=== PATIENT | female | born 1945 | race Caucasian/White ===

== ENCOUNTER 2016-10-18 13:54 | Emergency (ER) | payer MEDICARE, OTHER ==
[~2016-10-18] VITALS: Ht 167.6 cm; Wt 101.5 kg
[~2016-10-18 13:54] MED LIST: ASPI-535 PO; CIPR500T4 PO; CLOT30CR24 TOP; D-ME118S6 PO; IBUP-1542 PO; LEVO88TA42 PO; LOSA1TAB19 PO; METF-480 PO; NAPR-260 PO; OMEP20CA16 PO; OSLT75C PO; PRAV20TA63 PO; RTPRO NEB
[2016-10-18 14:00] VITALS: Ht 167.6 cm; Wt 101.5 kg
[2016-10-18] MEDS ORDERED: ASPIRIN 81 MG TAB PO STA (15:47)
[2016-10-18] MEDS ORDERED: NITROGLYCERIN 2% 1 GM OINT PKT TD STA (15:47)
[2016-10-18] MEDS ORDERED: NITROGLYCERIN (SL) 0.4 MG TAB SL PRN (16:00)
--- NOTE | 2016-10-18 16:28 | RADRPT ---
PROCEDURE: XR Chest 1 View. CLINICAL INDICATION: Chest pain TECHNIQUE: AP view of the chest was obtained. COMPARISON: April 24, 2015 FINDINGS: The cardiomediastinal silhouette is within normal limits. Elevated right hemidiaphragm is identified . Atelectasis is noted at the left lung base. No consolidations are identified. No pneumothorax is seen. Osseous structures are intact. IMPRESSION: Elevated right hemidiaphragm. Atelectasis at the left lung base. RPTAT: AA .Brayden Luevano MD, Date Time Electronically viewed and signed by .Brayden Luevano MD, on 10/18/2016 16:27 .P/
[2016-10-18 16:41] LABS: BASOPHILS % 0.4 % (0.0-2.0); EOSINOPHILS # 0.2 10^3/ul (0.0-0.5); EOSINOPHILS % 2.7 % (0.0-7.0); HEMATOCRIT 38.2 % (37.0-47.0); HEMOGLOBIN 12.4 g/dl (12.0-16.0); LYMPHOCYTES # 2.7 10^3/ul (0.8-2.9); LYMPHOCYTES % 30.5 % (15.0-51.0); MEAN CORPUSCULAR HEMOGLOBIN 28.5 pg (29.0-33.0); MEAN CORPUSCULAR HGB CONC 32.5 g/dl (32.0-37.0); MEAN CORPUSCULAR VOLUME 87.8 fl (82.0-101.0); MEAN PLATELET VOLUME 9.4 fl (7.4-10.4); MONOCYTE # 0.7 10^3/ul (0.3-0.9); MONOCYTES % 8.2 % (0.0-11.0); PLATELET COUNT 347 10^3/UL (140-415); RED BLOOD COUNT 4.35 10^6/ul (4.20-5.40); RED CELL DISTRIBUTION WIDTH 13.4 % (11.5-14.5); WHITE BLOOD COUNT 8.9 10^3/ul (4.8-10.8)
[2016-10-18] MEDS ORDERED: LOSA1TAB20 PO (16:45)
[2016-10-18] MEDS ORDERED: METF500T4 PO (16:46)
[2016-10-18] MEDS ORDERED: FOLI-49 PO (16:46)
[2016-10-18] MEDS ORDERED: CHOL500010 PO (16:47)
[2016-10-18 16:50] LABS: ANION GAP 15 (8-16); BLOOD UREA NITROGEN 25 mg/dl (7-20); CALCIUM 9.8 mg/dl (8.4-10.2); CARBON DIOXIDE 29 mmol/L (21-31); CHLORIDE 102 mmol/L (97-110); CREATININE 0.62 mg/dl (0.44-1.00); GLUCOSE 131 mg/dl (70-220); POTASSIUM 4.5 mmol/L (3.5-5.1); SODIUM 141 mmol/L (135-144)
[2016-10-18] MEDS ORDERED: MAGN27TA2 PO (16:50)
[2016-10-18] MEDS ORDERED: CYAN100 PO (16:51)
[2016-10-18] MEDS ORDERED: FISH1CAP PO (17:00)
[2016-10-18 17:11] LABS: TROPONIN-I < 0.012 ng/ml (0.00-0.12)
[2016-10-18 18:00] VITALS: TEMP 99.2
[2016-10-18] MEDS ORDERED: PANT40TA3 PO (18:21)
--- NOTE | 2016-10-18 18:22 | ERD ---
ER Documentation Chief Complaint Date/Time DATE: 10/18/16 TIME: 18:22 Chief Complaint Complains of chest pain and SOB x2 days HPI Patient is a 71-year-old female with coronary artery disease, hypertension, and diabetes who presents with chest pain shortness of breath. She said the chest pain started years ago but over the past 3 weeks it has been worse. She saw Dr. Kamara yesterday and had an EKG done and he was not sure what the etiology of her chest pain was but did not think that it was cardiac. She is also having upper abdominal pain and thought that maybe it was related to her abdominal pain. Upon review of old medical records this is the patient's third visit to the ER since 2014. Her primary doctor is Dr. Duarnt and her medical dosimetrist Dr. Kamara. ROS All systems reviewed and are negative except as per history of present illness. Medications Home Meds Active Scripts Pantoprazole* (Protonix*) 40 Mg Tablet., 40 MG PO DAILY, #20 TAB Prov:LOBO SILVA MD 10/18/16 Reported Medications Fish Oil/Dha/Epa (FISH OIL 1,200 MG FISH OIL) 1 Each Capsule, 1 EACH PO BID, CAP 10/18/16 Cyanocobalamin* (Vitamin B12*) Unknown Strength Tab, 1 TAB PO DAILY, TAB 10/18/16 Magnesium Amino Acid Chelate (Magnesium) Unknown Strength Tablet, 25 MG PO DAILY , TAB 10/18/16 Cholecalciferol (Vitamin D3) 5,000 Unit Tablet, 5000 UNIT PO DAILY, TAB 10/18/16 Folic Acid* (Folic Acid*) 1 Mg Tablet, 1 MG PO DAILY, TAB 10/18/16 Metformin Hcl* (Metformin Hcl*) 500 Mg Tablet, 500 MG PO WITH BREAKFAST, #30 TAB 10/18/16 Losartan-Hydrochlorothiazide (Losartan-HCTZ) 100-25 Mg Tab, 1 TAB PO DAILY, TAB 10/18/16 Levothyroxine Sodium* (Levoxyl*) 88 Mcg Tablet, 88 MCG PO DAILY, TAB 04/04/14 Aspirin Ec (Aspir 81) 81 Mg Tablet., 81 MG PO DAILY, TAB 04/04/14 Discontinued Reported Medications Pravastatin Sodium* (Pravastatin Sodium*) 20 Mg Tablet, 20 MG PO HS, TAB 04/04/14 Losartan-Hydrochlorothiazide (Losartan-HCTZ) 50-12.5 Mg Tab, 1 TAB PO DAILY, TAB 04/04/14 Metformin* (Glucophage*) 850 Mg Tablet, 850 MG PO DAILY, TAB 04/04/14 Omeprazole* (Omeprazole*) 20 Mg Capsule.dr, 20 MG PO DAILY, CAP 04/04/14 Discontinued Scripts Naproxen* (Naprosyn*) 500 Mg Tablet, 500 MG PO BID Y for PAIN AND/OR INFLAMMATION, #30 TAB Prov:KATELYN FOOTE PA-C 12/02/15 Ibuprofen* (Motrin*) 600 Mg Tab, 600 MG PO Q6H Y for PAIN AND OR ELEVATED TEMP, #20 TAB Prov:REYNA CORDOVA MD 04/24/15 Oseltamivir Phosphate* (Tamiflu*) 75 Mg Capsule, 75 MG PO BID for 5 Days, CAP Prov:REYNA CORDOVA MD 04/24/15 Ciprofloxacin Hcl* (Ciprofloxacin Hcl*) 500 Mg Tablet, 500 MG PO BID for 7 Days , TAB Prov:REYNA CORDOVA MD 04/24/15 Albuterol Sulfate* (Proventil* Neb) 0.083% Neb, 2.5 MG NEB Q4 Y for SHORTNESS OF BREATH, #30 EA Prov:REYNA CORDOVA MD 04/24/15 Dextromethorphan Hb-Promethazine Hcl (Promethazine DM Syrup) 180 Ml Syrup, 10 ML PO Q6 Y for COUGH, #120 ML Prov:REYNA CORDOVA MD 04/24/15 Clotrimazole* (Clotrimazole* AF) 1% - 30 Gm Cream.gm., 1 APPLIC TOP BID for 7 Days, TUB Prov:CHORENÉE 09/02/14 Allergies Allergies: Coded Allergies: hydrocodone (Verified Allergy, Mild, UPSET STOMACH , VOMITING, 10/18/16) PMhx/Soc History of Surgery: Yes (HIP RIGHT, RIGHT THUMP, TOES, NOSE, ) Anesthesia Reaction: No Hx Neurological Disorder: No Hx Respiratory Disorders: No 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 THYROID ) Hx Alcohol Use: No Hx Substance Use: No Hx Tobacco Use: No Smoking Status: Never smoker FmHx Family History: No coronary disease Physical Exam Vitals Vital Signs Date Time Temp Pulse Resp B/P Pulse Ox O2 Delivery O2 Flow Rate FiO2 10/18/16 18:00 99.2 80 20 165/76 94 10/18/16 14:00 99.2 91 20 171/77 94 Physical Exam Const: No acute distress Head: Atraumatic Eyes: Normal Conjunctiva ENT: Normal External Ears, Nose and Mouth. Neck: Full range of motion..~ No meningismus. Resp: Clear to auscultation bilaterally Cardio: Regular rate and rhythm, no murmurs Abd: Soft,Midepigastric tenderness to palpation without rebound or guarding Skin: No petechiae or rashes Back: No midline or flank tenderness Ext: No cyanosis, or edema Neur: Awake and alert Psych: Normal Mood and Affect Result Diagram: 10/18/16 1605 10/18/16 1605 Results 24 hrs Laboratory Tests Test 10/18/16 16:05 White Blood Count 8.910^3/ul Red Blood Count 4.3510^6/ul Hemoglobin 12.4g/dl Hematocrit 38.2% Mean Corpuscular Volume 87.8fl Mean Corpuscular Hemoglobin 28.5pg Mean Corpuscular Hemoglobin Concent 32.5g/dl Red Cell Distribution Width 13.4% Platelet Count 04187^3/UL Mean Platelet Volume 9.4fl Neutrophils % 58.0% Lymphocytes % 30.5% Monocytes % 8.2% Eosinophils % 2.7% Basophils % 0.4% Nucleated Red Blood Cells % 0.0/100WBC Neutrophils # (Manual) 5.210^3/ul Lymphocytes # 2.710^3/ul Monocytes # 0.710^3/ul Eosinophils # 0.210^3/ul Basophils # 0.010^3/ul Nucleated Red Blood Cells # 0.010^3/ul Sodium Level 141mmol/L Potassium Level 4.5mmol/L Chloride Level 102mmol/L Carbon Dioxide Level 29mmol/L Anion Gap 15 Blood Urea Nitrogen 25mg/dl Creatinine 0.62mg/dl Glucose Level 131mg/dl Calcium Level 9.8mg/dl Troponin I < 0.012ng/ml Current Medications Medications (Trade) Dose Ordered Sig/Emily Route PRN Reason Start Time Stop Time Status Last Admin Dose Admin Aspirin (Aspirin) 162 mg ONCE STAT PO 10/18/16 15:47 10/18/16 15:48 DC 10/18/16 16:21 Nitroglycerin (Nitroglycerin 2% Oint) 1 inch ONCE STAT TD 10/18/16 15:47 10/18/16 15:48 DC 10/18/16 16:15 Nitroglycerin (Nitroglycerin (Sl Tab) 0.4 Mg) 1 tab Q5M UP TO 3 DOSES PRN SL CHEST PAIN 10/18/16 16:00 10/18/16 16:15 Procedures/MDM EKG read by me: Rate/Rhythm: Regular rate and rhythm at a rate of 90 Intervals: Normal Impression: No evidence of ischemia or arrhythmia Chest x-ray shows no obvious pneumonia or pneumothorax per radiology. Patient is a 71-year-old female with diabetes, hypertension, and coronary disease presents with chest pain shortness of breath. Her initial EKG shows no signs of ischemia and initial troponin is negative. However given her age and comorbidities I did want to admit her to the hospital. However she is refusing at this time. I did again offer and recommend admission and she is refusing. She is going to leave AGAINST MEDICAL ADVICE. She can follow-up with Dr. Gonzalez as soon as possible for evaluation. I told her that she could return for any worsening symptoms. She was given aspirin nitroglycerin here for possible acute coronary syndrome. At this point I doubt pneumonia, pneumothorax, pulmonary embolism, or aortic dissection. Departure Diagnosis: Primary Impression: Chest pain Chest pain type: unspecified Qualified Code: R07.9 - Chest pain, unspecified type Condition: Fair Patient Instructions: Chest Pain, Uncertain Cause Referrals: VIKKI DURANT MD (PCP) Additional Instructions: Call your primary care doctor TOMORROW for an appointment during the next 1-2 days.See the doctor sooner or return here if your condition worsens before your appointment time. LOBO SILVA MD Oct 18, 2016 18:22
[2016-10-18 19:05] VITALS: BP 140/79; PULSE 86; RESP 18
== END 2016-10-18 19:05 | disposition left against medical advice (07) ==
LOC: E/R 13:54
DX: R07.9 Chest pain, unspecified (principal); I10 Essential (primary) hypertension; E11.9 Type 2 diabetes mellitus without complications; I25.10 Atherosclerotic heart disease of native coronary artery without angina pectoris; Z79.82 Long term (current) use of aspirin; Z79.84 Long term (current) use of oral hypoglycemic drugs
CPT/HCPCS: 36415; 71010; 80048; 84484; 85025; 93005

== ENCOUNTER 2016-12-05 09:38 | Day surgery (SDC) | payer MEDICARE, OTHER ==
[~2016-12-05] VITALS: Ht 154.9 cm; Wt 102.4 kg
[~2016-12-05 09:38] MED LIST changes: +CHOL500010 PO; -CIPR500T4 PO; -CLOT30CR24 TOP; +CYAN100 PO; -D-ME118S6 PO; +FISH1CAP PO; +FOLI-49 PO; -IBUP-1542 PO; -LOSA1TAB19 PO; +LOSA1TAB20 PO; +MAGN27TA2 PO; -METF-480 PO; +METF500T4 PO; -NAPR-260 PO; -OMEP20CA16 PO; -OSLT75C PO; +PANT40TA3 PO; -PRAV20TA63 PO; -RTPRO NEB
[2016-12-05 11:11] VITALS: Ht 154.9 cm; Wt 102.4 kg
[2016-12-05 11:40] VITALS: BP 167/72; PULSE 69; RESP 18
[2016-12-05] MEDS ORDERED: hydrALAzine 20 MG INJ ONE (11:50)
[2016-12-05] MEDS ORDERED: PROPOFOL 40 ML ONE (11:50)
--- NOTE | 2016-12-05 12:12 | OPPN ---
Date/Time of Note Date/Time of Note DATE: 12/05/16 TIME: 12:11 Operative Report Preoperative Diagnosis Change in bowel habit Postoperative Diagnosis Poor prep Small sigmoid colon polyp was removed Internal hemorrhoids Operation/Procedure Performed Colonoscopy and biopsy Surgeon see signature line construction project assistant None Anesthesia: MAC Estimated blood loss: none Transfusion Required none Specimen Sigmoid polyp Grafts/Implants none Complications none TAD DAVIS MD Dec 05, 2016 12:12
--- NOTE | 2016-12-05 12:12 | OPPN ---
Date/Time of Note Date/Time of Note DATE: 12/05/16 TIME: 12:11 Operative Report Preoperative Diagnosis Change in bowel habit Postoperative Diagnosis Poor prep Small sigmoid colon polyp was removed Internal hemorrhoids Operation/Procedure Performed Colonoscopy and biopsy Surgeon see signature line assistant program manager None Anesthesia: MAC Estimated blood loss: none Transfusion Required none Specimen Sigmoid polyp Grafts/Implants none Complications none TAD DAVIS MD Dec 05, 2016 12:12
--- NOTE | 2016-12-05 12:12 | OPPN ---
Date/Time of Note Date/Time of Note DATE: 12/05/16 TIME: 12:11 Operative Report Preoperative Diagnosis Change in bowel habit Postoperative Diagnosis Poor prep Small sigmoid colon polyp was removed Internal hemorrhoids Operation/Procedure Performed Colonoscopy and biopsy Surgeon see signature line operator/assistant foreman None Anesthesia: MAC Estimated blood loss: none Transfusion Required none Specimen Sigmoid polyp Grafts/Implants none Complications none TAD DAVIS MD Dec 05, 2016 12:12
--- NOTE | 2016-12-05 12:28 | GILP ---
DATE OF PROCEDURE: 12/05/2016 NAME OF PROCEDURES: Colonoscopy and biopsy. SURGEON: Amna Chou MD PREOPERATIVE DIAGNOSES: 1. Change in the bowel habit. 2. Lower abdominal pain. POSTOPERATIVE DIAGNOSES 1. Colonoscopy all the way to the cecum. 2. Poor prep making the exam somewhat suboptimal. 3. Small sigmoid colon polyp was removed using the biopsy forceps. 4. Internal hemorrhoids. INDICATION FOR THE PROCEDURE: Ms. Ashley Quach is a 71-year-old female patient who noticed a ch willy in the bowel habit with lower abdominal pain. The patient had a previous colonoscopy and it wa s suboptimal because of poor preparation. Patient was scheduled for colonoscopy for further evaluat ion. The procedure and possible complications are well explained to the patient. The patient understood and consented to the procedure. DESCRIPTION OF PROCEDURE: Under the influence of anesthesia, the colonoscope was carefully introduc ed in the rectum and under direct vision, it was advanced all the way to the cecum. FINDINGS: The patient had poor prep making the exam somewhat suboptimal. She had a small sigmoid c olon polyp and it was removed using biopsy forceps. She had internal hemorrhoids. She tolerated the procedure very well and there was no complication from the procedure. At the end of the procedures, she was awake with stable vital signs and she was discharged home to the care of her family. IMPRESSION: Please see postoperative diagnosis. PLAN 1. High fiber diet. 2. Because of the patient's age, patient may not need another screening colonoscopy. Dictated By: AMNA WEI/KARYNA Conf#: [id number] DID#: [id number]
[2016-12-05 12:40] VITALS: BP 133/63; RESP 20
[2016-12-05] MEDS ORDERED: PROPOFOL 20 ML ONE ×2 (12:55)
--- NOTE | 2016-12-06 16:54 | RADRPT ---
Vent Rate: 69 bpm RR Interval: 0 msec SC Interval: 176 msec QRS Duration: 102 msec QT Interval: 444 msec QTC Interval: 475 msec P-R-T [place]: 38 - -17 - 18 degrees Normal sinus rhythm Minimal voltage criteria for LVH, may be normal variant Borderline ECG Electronically Signed By: Avinash Moreno [id number]
--- NOTE | 2016-12-06 16:54 | RADRPT ---
Vent Rate: 69 bpm RR Interval: 0 msec [place] Interval: 176 msec QRS Duration: 102 msec QT Interval: 444 msec QTC Interval: 475 msec P-R-T [place]: 38 - -17 - 18 degrees Normal sinus rhythm Minimal voltage criteria for LVH, may be normal variant Borderline ECG Electronically Signed By: Avinash Moreno [id number]
--- NOTE | 2016-12-06 16:54 | RADRPT ---
Vent Rate: 69 bpm RR Interval: 0 msec MS Interval: 176 msec QRS Duration: 102 msec QT Interval: 444 msec QTC Interval: 475 msec P-R-T [place]: 38 - -17 - 18 degrees Normal sinus rhythm Minimal voltage criteria for LVH, may be normal variant Borderline ECG Electronically Signed By: Avinash Moreno [id number]
== END 2016-12-05 15:36 | disposition home or self-care (01) ==
LOC: GIL 09:38
PROVIDERS: ATTEND Internal Medicine Gastroenterology
DX: K63.5 Polyp of colon (principal); K64.8 Other hemorrhoids; I25.10 Atherosclerotic heart disease of native coronary artery without angina pectoris; E78.5 Hyperlipidemia, unspecified; E11.9 Type 2 diabetes mellitus without complications; E03.9 Hypothyroidism, unspecified; K21.9 Gastro-esophageal reflux disease without esophagitis; I11.0 Hypertensive heart disease with heart failure; I50.9 Heart failure, unspecified
CPT/HCPCS: 45380; 82962; 88305; 93005; J0360

== ENCOUNTER 2017-01-01 10:18 | Emergency (ER) | payer MEDICARE, OTHER ==
[~2017-01-01] VITALS: Ht 154.9 cm; Wt 101.4 kg
[2017-01-01 10:21] VITALS: Ht 154.9 cm; Wt 101.4 kg
[2017-01-01 13:02] LABS: BASOPHILS % 0.3 % (0.0-2.0); EOSINOPHILS # 0.1 10^3/ul (0.0-0.5); EOSINOPHILS % 1.3 % (0.0-7.0); HEMATOCRIT 38.6 % (37.0-47.0); HEMOGLOBIN 12.5 g/dl (12.0-16.0); LYMPHOCYTES # 2.3 10^3/ul (0.8-2.9); MEAN CORPUSCULAR HEMOGLOBIN 28.7 pg (29.0-33.0); MEAN CORPUSCULAR HGB CONC 32.4 g/dl (32.0-37.0); MEAN CORPUSCULAR VOLUME 88.5 fl (82.0-101.0); MEAN PLATELET VOLUME 9.2 fl (7.4-10.4); MONOCYTE # 0.7 10^3/ul (0.3-0.9); MONOCYTES % 7.9 % (0.0-11.0); NEUTROPHIL # 6.1 10^3/ul (1.6-7.5); NEUTROPHILS % 65.3 % (39.0-77.0); PLATELET COUNT 332 10^3/UL (140-415); RED BLOOD COUNT 4.36 10^6/ul (4.20-5.40); RED CELL DISTRIBUTION WIDTH 13.2 % (11.5-14.5); WHITE BLOOD COUNT 9.3 10^3/ul (4.8-10.8)
[2017-01-01 13:03] LABS: ADD UMIC YES; UR ASCORBIC ACID NEGATIVE (NEGATIVE); UR BACTERIA FEW /HPF (NONE SEEN); UR BILIRUBIN (Dip) NEGATIVE (NEGATIVE); UR BLOOD (Dip) NEGATIVE (NEGATIVE); UR CLARITY CLEAR (CLEAR); UR COLOR STRAW (YELLOW); UR GLUCOSE (Dip) NEGATIVE (NEGATIVE); UR KETONES (Dip) NEGATIVE (NEGATIVE); UR LEUKOCYTE ESTERASE (Dip) TRACE Leu/ul (NEGATIVE); UR NITRITE (Dip) NEGATIVE (NEGATIVE); UR RBC 1 /HPF (0-5); UR SPECIFIC GRAVITY (Dip) 1.006 (1.003-1.030); UR SQUAMOUS EPITHELIAL CELL FEW /HPF (FEW); UR TOTAL PROTEIN (Dip) NEGATIVE (NEGATIVE); UR UROBILINOGEN (Dip) NEGATIVE (NEGATIVE)
[2017-01-01 13:19] LABS: ALBUMIN 4.1 g/dl (3.3-4.9); ALBUMIN/GLOBULIN RATIO 0.95; BILIRUBIN,INDIRECT 0.2 mg/dl (0-1.1); BILIRUBIN,TOTAL 0.2 mg/dl (0.2-1.3); CREATININE 0.65 mg/dl (0.44-1.00); POTASSIUM 4.5 mmol/L (3.5-5.1); TOTAL PROTEIN 8.4 g/dl (6.1-8.1)
--- NOTE | 2017-01-01 13:54 | RADRPT ---
PROCEDURE: XR Chest. CLINICAL INDICATION: chest pain, cough TECHNIQUE: Single frontal view of the chest was obtained COMPARISON: 04/24/15 FINDINGS: The heart and mediastinum are within normal limits. The lungs are clear. There is no pleural effusion or pneumothorax. RPTAT: AA IMPRESSION: No acute disease. .Macario Walker MD, MD Date Time Electronically viewed and signed by .Macario Walker MD, MD on 01/01/2017 13:54 .S/
[2017-01-01] MEDS ORDERED: BENZ100C70 PO (14:27)
[2017-01-01] MEDS ORDERED: FLUT16SP17 NASAL (14:27)
[2017-01-01] MEDS ORDERED: ACET500C5 PO (14:27)
--- NOTE | 2017-01-01 14:34 | EN ---
Date/Time of Note Date/Time of Note DATE: 01/01/17 TIME: 14:34 ER Progress Note I have seen and evaluated this patient and agree with the plan of care for discharge at this time. Discharge instructions given to the patient to return instructions also given to the patient verbalizes understanding. SHERIDAN BERKOWITZ DO Jan 01, 2017 14:34
--- NOTE | 2017-01-01 16:34 | ERD ---
ER Documentation Chief Complaint Chief Complaint SORE THROAT, HERNIA PAIN, SINUS CONGESTION, COUGH AND CONGESTION HPI 71-year-old female, history of diabetes, hypertension, obesity, with umbilical hernia presents with sore throat, congestion for the past 3 days, and abdominal pain. She describes a dry cough, with clear rhinorrhea and trip to the back of her throat. She also comes in with diffuse abdominal pain, and is in the mid abdomen radiates to her back. This pain in the abdomen has been ongoing for 2 weeks, and without fevers or chills, vomiting, diarrhea. ROS All systems reviewed and are negative except as per history of present illness. Medications Home Meds Active Scripts Acetaminophen* (Tylophen*) 500 Mg Capsule, 1 CAP PO Q6H Y for PAIN AND OR ELEVATED TEMP, #20 CAP Prov:JUDI SPENCER PA-C 01/01/17 Fluticasone Propionate* (Fluticasone Propionate* Nasal) 50 Mcg/[place] - 16 Gm [place].susp, 1 SPRAY NASAL BID, #1 BOTTLE TO EACH NOSTRIL Prov:JUDI SPENCER PA-C 01/01/17 Benzonatate* (Tessalon Per[place]*) 100 Mg Capsule, 100 MG PO Q8H Y for COUGH, #30 CAP Prov:JUDI SPENCER PA-C 01/01/17 Pantoprazole* (Protonix*) 40 Mg Tablet.dr, 40 MG PO DAILY, #20 TAB Prov:LOBO SILVA MD 10/18/16 Reported Medications Fish Oil/Dha/Epa (FISH OIL 1,200 MG FISH OIL) 1 Each Capsule, 1 EACH PO BID, CAP 10/18/16 Cyanocobalamin* (Vitamin B12*) Unknown Strength Tab, 1 TAB PO DAILY, TAB 10/18/16 Magnesium Amino Acid Chelate (Magnesium) Unknown Strength Tablet, 25 MG PO DAILY , TAB 10/18/16 Cholecalciferol (Vitamin D3) 5,000 Unit Tablet, 5000 UNIT PO DAILY, TAB 10/18/16 Folic Acid* (Folic Acid*) 1 Mg Tablet, 1 MG PO DAILY, TAB 10/18/16 Metformin Hcl* (Metformin Hcl*) 500 Mg Tablet, 500 MG PO WITH BREAKFAST, #30 TAB 10/18/16 Losartan-Hydrochlorothiazide (Losartan-HCTZ) 100-25 Mg Tab, 1 TAB PO DAILY, TAB 10/18/16 Levothyroxine Sodium* (Levoxyl*) 88 Mcg Tablet, 88 MCG PO DAILY, TAB 04/04/14 Aspirin Ec (Aspir 81) 81 Mg Tablet.dr, 81 MG PO DAILY, TAB 04/04/14 Allergies Allergies: Coded Allergies: hydrocodone (Verified Allergy, Mild, UPSET STOMACH , VOMITING, 10/18/16) PMhx/Soc History of Surgery: Yes (RIGHT HIP REPLACEMENT, NOSE, RIGHT THUMB BONE SPUR, BILATERAL FOOT BONE SPU) Anesthesia Reaction: No Hx Neurological Disorder: No Hx Respiratory Disorders: Yes (SLEEP APNEA ON CPAP AT NIGHT) Hx Cardiac Disorders: Yes (POOR BLOOD FLOW, VENOUS REFLUX IN LEGS) Hx Psychiatric Problems: Yes (DEPRESSION, ANXIETY) Hx Miscellaneous Medical Probl: Yes (HYPERLIPIDEMIA) Hx Alcohol Use: No (OCCASIONAL) Hx Substance Use: No Hx Tobacco Use: No Smoking Status: Never smoker Physical Exam Vitals Vital Signs Date Time Temp Pulse Resp B/P Pulse Ox O2 Delivery O2 Flow Rate FiO2 01/01/17 10:21 98.6 90 18 150/72 97 Physical Exam General: Well-developed, well-nourished. The patient appears in no acute distress. HEENT: Head is normocephalic, atraumatic. No scleral icterus. Pupils are equal , round, and reactive. Oral mucous membranes are moist. No pharyngeal erythema. Neck: Supple. Nontender.Supple. Nontender.Clear to auscultation. Normal air movement. Lungs: Clear to auscultation. Normal air movement. Heart: Regular rate and rhythm. S1 and S2 are normal. No murmurs, gallops, or rubs. Abdomen: Large pannus, soft, there is mid abdominal tenderness, there is no rebound pain, umbilical hernia is able to be reduced.. Bowel sounds are normoactive. Extremities: No clubbing or cyanosis. Normal pulses. Moving extremities x 4. No weakness. Neurologic: Alert and oriented 3. No focal deficits. Skin: Normal turgor. No rash or lesions. Result Diagram: 01/01/17 1254 01/01/17 1254 Results 24 hrs Laboratory Tests Test 01/01/17 12:54 White Blood Count 9.310^3/ul Red Blood Count 4.3610^6/ul Hemoglobin 12.5g/dl Hematocrit 38.6% Mean Corpuscular Volume 88.5fl Mean Corpuscular Hemoglobin 28.7pg Mean Corpuscular Hemoglobin Concent 32.4g/dl Red Cell Distribution Width 13.2% Platelet Count 81668^3/UL Mean Platelet Volume 9.2fl Neutrophils % 65.3% Lymphocytes % 25.0% Monocytes % 7.9% Eosinophils % 1.3% Basophils % 0.3% Nucleated Red Blood Cells % 0.0/100WBC Neutrophils # 6.110^3/ul Lymphocytes # 2.310^3/ul Monocytes # 0.710^3/ul Eosinophils # 0.110^3/ul Basophils # 0.010^3/ul Nucleated Red Blood Cells # 0.010^3/ul Urine Color STRAW Urine Clarity CLEAR Urine pH 7.0 Urine Specific [place] 1.006 Urine Ketones NEGATIVEmg/dL Urine Nitrite NEGATIVEmg/dL Urine Bilirubin NEGATIVEmg/dL Urine Urobilinogen NEGATIVEmg/dL Urine Leukocyte Esterase TRACELeu/ul Urine Microscopic RBC 1/HPF Urine Microscopic WBC 2/HPF Urine Squamous Epithelial Cells FEW/HPF Urine Bacteria FEW/HPF Urine Hemoglobin NEGATIVEmg/dL Urine Glucose NEGATIVEmg/dL Urine Total Protein NEGATIVEmg/dl Sodium Level 141mmol/L Potassium Level 4.5mmol/L Chloride Level 100mmol/L Carbon Dioxide Level 31mmol/L Anion Gap 15 Blood Urea Nitrogen 17mg/dl Creatinine 0.65mg/dl Glucose Level 151mg/dl Calcium Level 10.0mg/dl Total Bilirubin 0.2mg/dl Direct Bilirubin 0.00mg/dl Indirect Bilirubin 0.2mg/dl Aspartate Amino Transf (AST/SGOT) 26IU/L Alanine Aminotransferase (ALT/SGPT) 34IU/L Alkaline Phosphatase 127IU/L Total Protein 8.4g/dl Albumin 4.1g/dl Globulin 4.30g/dl Albumin/Globulin Ratio 0.95 Lipase 726U/L Procedures/MDM 71-year-old female presents with URI symptoms, as well as abdominal pain. Her URI symptoms likely are viral, chest x-ray is normal no evidence of pneumothorax or pneumonia, viral effusion. Patient also presents with mid abdominal pain ongoing for 2 weeks, labs show an elevated lipase in the 720s, given that she is not vomiting, febrile or having signs of acute abdomen, patient has elevated lipase without evidence of acute pancreatitis. Additionally patient has an umbilical hernia, that is able to be reduced, no signs of incarcerated hernia. No evidence of UTI, appendicitis, acute hepatobiliary process, bowel obstruction, volvulus. Given her age, patient's care and plan was discussed my attending physician Dr. Marsh agrees that the patient can be discharged home. She will be given Tessalon, Nasonex as well as Tylenol for her pain. Patient's blood pressure was elevated (>120/80) but appears stable without evidence of hypertension emergency or urgency. The patient was counseled about the risks of hypertension and urged to pursue outpatient monitoring and therapy within a week with their primary care physician. The case was reviewed and discussed with Dr. Marsh who agrees with the plan of care including labs, treatment, and advanced imaging as appropriate. Departure Diagnosis: Primary Impression: Elevated lipase Additional Impression: Cough Condition: Good Patient Instructions: Abdominal Pain, Unknown Cause, (Female), Uri, Viral, No Abx (Adult) JUDI SPENCER PA-C Jan 01, 2017 16:34
== END 2017-01-01 14:40 | disposition home or self-care (01) ==
LOC: FTE 10:18
DX: R74.8 Abnormal levels of other serum enzymes (principal); R05 Cough; I10 Essential (primary) hypertension; E11.9 Type 2 diabetes mellitus without complications; E66.9 Obesity, unspecified; Z79.82 Long term (current) use of aspirin; Z79.84 Long term (current) use of oral hypoglycemic drugs; Z96.641 Presence of right artificial hip joint
CPT/HCPCS: 36415; 71010; 80053; 81001; 83690; 85025

== ENCOUNTER 2017-02-03 15:18 | Emergency (ER) | payer MEDICARE, OTHER ==
[~2017-02-03] VITALS: Ht 154.9 cm; Wt 100.3 kg
[~2017-02-03 15:18] MED LIST changes: +ACET500C5 PO; +BENZ100C70 PO; -CYAN100 PO; +CYAN100T PO; +FLUT16SP17 NASAL; -LOSA1TAB20 PO; +LOSA1TAB25 PO
[2017-02-03 15:48] VITALS: Ht 154.9 cm; Wt 100.3 kg
[2017-02-03] MEDS ORDERED: SOD CHLORIDE 0.9% 250 ML IV STA (18:04)
--- NOTE | 2017-02-03 18:17 | ERD ---
ER Documentation Chief Complaint Chief Complaint Pt with intermitent AP, L flank pain X 2 months, worst today. HPI 71-year-old female with multiple medical problems presenting to the ER with left -sided abdominal pain since yesterday. She states it has been radiating to her right lower quadrant and occasionally to her left flank. She describes the pain as aching, pressure-like, constant. 8 out of 10. No alleviating or exacerbating factors. She denies any associated nausea, vomiting, constipation , hematochezia, melena, fevers, chills, dysuria or hematuria. No recent injuries. She does have a history of an umbilical hernia but no abdominal surgeries. ROS All systems reviewed and are negative except as per history of present illness. Medications Home Meds Active Scripts Acetaminophen* (Tylophen*) 500 Mg Capsule, 1 CAP PO Q6H Y for PAIN AND OR ELEVATED TEMP, #20 CAP Prov:JUDI SPENCER PA-C 01/01/17 Fluticasone Propionate* (Fluticasone Propionate* Nasal) 50 Mcg/Cyclone - 16 Gm Cyclone.susp, 1 SPRAY NASAL BID, #1 BOTTLE TO EACH NOSTRIL Prov:JUDI SPENCER PA-C 01/01/17 Benzonatate* (Tessalon Perle*) 100 Mg Capsule, 100 MG PO Q8H Y for COUGH, #30 CAP Prov:JUDI SPENCER PA-C 01/01/17 Pantoprazole* (Protonix*) 40 Mg Tablet.dr, 40 MG PO DAILY, #20 TAB Prov:LOBO SILVA MD 10/18/16 Reported Medications Fish Oil/Dha/Epa (FISH OIL 1,200 MG FISH OIL) 1 Each Capsule, 1 EACH PO BID, CAP 10/18/16 Cyanocobalamin* (Vitamin B12*) Unknown Strength Tab, 1 TAB PO DAILY, TAB 10/18/16 Magnesium Amino Acid Chelate (Magnesium) Unknown Strength Tablet, 25 MG PO DAILY , TAB 10/18/16 Cholecalciferol (Vitamin D3) 5,000 Unit Tablet, 5000 UNIT PO DAILY, TAB 10/18/16 Folic Acid* (Folic Acid*) 1 Mg Tablet, 1 MG PO DAILY, TAB 10/18/16 Metformin Hcl* (Metformin Hcl*) 500 Mg Tablet, 500 MG PO WITH BREAKFAST, #30 TAB 10/18/16 Losartan-Hydrochlorothiazide (Losartan-HCTZ) 100-25 Mg Tab, 1 TAB PO DAILY, TAB 10/18/16 Levothyroxine Sodium* (Levoxyl*) 88 Mcg Tablet, 88 MCG PO DAILY, TAB 04/04/14 Aspirin Ec (Aspir 81) 81 Mg Tablet.dr, 81 MG PO DAILY, TAB 04/04/14 Allergies Allergies: Coded Allergies: hydrocodone (Verified Allergy, Mild, UPSET STOMACH , VOMITING, 10/18/16) PMhx/Soc History of Surgery: Yes (RIGHT HIP REPLACEMENT, NOSE, RIGHT THUMB BONE SPUR, BILATERAL FOOT BONE SPU) Anesthesia Reaction: No Hx Neurological Disorder: No Hx Respiratory Disorders: Yes (SLEEP APNEA ON CPAP AT NIGHT) Hx Cardiac Disorders: Yes (POOR BLOOD FLOW, VENOUS REFLUX IN LEGS) Hx Psychiatric Problems: Yes (DEPRESSION, ANXIETY) Hx Miscellaneous Medical Probl: Yes (HYPERLIPIDEMIA, hypothyroid, fibromyalgia) Hx Alcohol Use: No (OCCASIONAL) Hx Substance Use: No Hx Tobacco Use: No Smoking Status: Never smoker FmHx Family History: No diabetes Physical Exam Vitals Vital Signs Date Time Temp Pulse Resp B/P Pulse Ox O2 Delivery O2 Flow Rate FiO2 02/03/17 15:48 99.1 78 18 200/85 97 Physical Exam Const: Well-developed, obese, no apparent distress, nontoxic Head: Atraumatic Eyes: Normal Conjunctiva ENT: Normal External Ears, Nose and Mouth. Neck: Full range of motion..~ No meningismus. Resp: Clear to auscultation bilaterally Cardio: Regular rate and rhythm, no murmurs. 2+ distal pulses Abd: Reducible umbilical hernia noted. No surgical scars. Soft, right lower quadrant tenderness to deep palpation, non distended. No rebound or guarding. Normal bowel sounds Skin: No petechiae or rashes Back: No midline or flank tenderness Ext: No cyanosis, or edema Neur: Awake and alert Psych: Normal Mood and Affect Results 24 hrs Current Medications Medications (Trade) Dose Ordered Sig/Emily Route PRN Reason Start Time Stop Time Status Last Admin Dose Admin Sodium Chloride (NS) 250 ml @ 250 mls/hr Q1H STAT IV 02/03/17 18:04 02/03/17 19:03 Procedures/MDM EMERGENT LABS AND DIAGNOSTIC STUDIES: Lab Results above were reviewed and interpreted by me. CBC: no anemia or evidence of infection CMP: No evidence of electrolyte abnormality, renal failure, hypoglycemia, liver failure, or biliary obstruction Lipase: no evidence of pancreatitis Troponin within normal limits Lactate within normal limits UA: no evidence of infection 12-lead EKG was interpreted by Phillip Dietrich MD: Normal Sinus Rhythm with ventricular rate of [] beats per minute Normal axis Normal intervals No acute ST or T wave changes suggestive of acute ischemia or STEMI. Radiology Results as interpreted by Radiology below were reviewed by Delaney Dietrich MD: Chest x-ray: CT abdomen and pelvis: Initial Nursing notes reviewed. Previous Medical Records requested via the Electronic Health Record. EMERGENCY DEPARTMENT COURSE / MEDICAL DECISION MAKING: Patient's blood pressure was elevated (>120/80) but appears stable without evidence of hypertensive emergency or urgency. The patient was counseled about the risks of hypertension and urged to pursue outpatient monitoring and therapy within a week with their primary care physician. RERE DIETRICH MD Feb 03, 2017 18:17
[2017-02-03 18:29] LABS: BASOPHILS % 0.4 % (0.0-2.0); EOSINOPHILS # 0.3 10^3/ul (0.0-0.5); EOSINOPHILS % 2.6 % (0.0-7.0); HEMATOCRIT 35.5 % (37.0-47.0); HEMOGLOBIN 11.6 g/dl (12.0-16.0); LYMPHOCYTES # 3.3 10^3/ul (0.8-2.9); LYMPHOCYTES % 34.3 % (15.0-51.0); MEAN CORPUSCULAR HEMOGLOBIN 28.9 pg (29.0-33.0); MEAN CORPUSCULAR HGB CONC 32.7 g/dl (32.0-37.0); MEAN CORPUSCULAR VOLUME 88.5 fl (82.0-101.0); MEAN PLATELET VOLUME 9.2 fl (7.4-10.4); MONOCYTE # 0.8 10^3/ul (0.3-0.9); MONOCYTES % 7.9 % (0.0-11.0); NEUTROPHIL # 5.2 10^3/ul (1.6-7.5); NEUTROPHILS % 54.6 % (39.0-77.0); PLATELET COUNT 347 10^3/UL (140-415); RED BLOOD COUNT 4.01 10^6/ul (4.20-5.40); RED CELL DISTRIBUTION WIDTH 13.2 % (11.5-14.5); WHITE BLOOD COUNT 9.5 10^3/ul (4.8-10.8)
[2017-02-03] MEDS ORDERED: CYAN100080 PO (18:29)
[2017-02-03] MEDS ORDERED: MAGNESIUM 250MG PO (18:34)
[2017-02-03] MEDS ORDERED: FOL8 PO (18:34)
[2017-02-03] MEDS ORDERED: CALCIUM PO (18:36)
[2017-02-03] MEDS ORDERED: MULTI PO (18:37)
[2017-02-03] MEDS ORDERED: MONT10TA21 PO (18:37)
[2017-02-03 18:40] LABS: ALBUMIN 3.4 g/dl (3.3-4.9); ALBUMIN/GLOBULIN RATIO 1.09; CALCIUM 9.3 mg/dl (8.4-10.2); CREATININE 0.74 mg/dl (0.44-1.00); TOTAL PROTEIN 6.5 g/dl (6.1-8.1)
[2017-02-03 18:51] LABS: TROPONIN-I 0.014 ng/ml (0.00-0.12)
--- NOTE | 2017-02-03 19:03 | RADRPT ---
PROCEDURE: CT Abdomen and Pelvis without contrast. CLINICAL INDICATION: Abdominal pain, left flank pain. TECHNIQUE: A CT scan of the abdomen and pelvis was performed without intravenous contrast. Johns l and sagittal reformatted images were generated. DICOM images are available. Images were reviewed o n a high-resolution PACS workstation. CTDIvol: 22.92 mGy. DLP: 1418.37 mGy-cm. One or more of the following dose reduction techniques were used: - Automated exposure control. - Adjustment of the mA and/or kV according to patient size. - Use of iterative reconstruction technique. COMPARISON: None. FINDINGS: There is mild atelectasis in both lower lobes. Evaluation of the abdominal and pelvic viscera is limited by the lack of oral and intravenous contra st. The liver is unremarkable. The gallbladder is contracted. The common bile duct is not dilated. The spleen is not enlarged. No pancreatic lesion is identified and there is no pancreatic ductal dilatat ion. The adrenal glands are unremarkable. The kidneys are normal in size. There is no perinephric fat stranding. No hydronephrosis is seen. No urinary stone is identified. There is a 4.4 cm right renal cyst. The small and large bowel are normal in caliber. There is no bowel wall thickening. There is mild to moderate sigmoid colon diverticulosis. The appendix is normal. Artifact from a right hip arthroplasty limits evaluation of the lower pelvic structures. The urinar y bladder is unremarkable. The pelvic organs are within normal limits. No lymphadenopathy is identified. There is no ascites. No pneumoperitoneum is seen. There are minima l arterial calcifications. There is moderate to large fat-containing umbilical hernia. There are calcified injection granulomas in the subcutaneous fat of both buttocks. No suspicious osseous lesion is idenitified. Degenerative changes are noted along the spine. IMPRESSION: 1. No inflammation, mass, or lymphadenopathy. 2. No obstructive uropathy or urinary stone. 3. Normal appendix. 4. Mild to moderate sigmoid colon diverticulosis. 5. [id number] fat-containing umbilical hernia. 6. Right hip arthroplasty. RPTAT: HTAR .Sunday Melissa MD, MD Date Time Electronically viewed and signed by .Sunday Melissa MD, MD on 02/03/2017 19:03 .R/
--- NOTE | 2017-02-03 19:06 | RADRPT ---
PROCEDURE: XR 1 view Chest. CLINICAL INDICATION: Abdominal pain. TECHNIQUE: Portable Single frontal view of the chest was obtained. COMPARISON: CHEST 01/01/2017 FINDINGS: The heart is normal in size. There are mild aortic calcifications. There is no focal consolidation. There is no pleural effusion. No pneumothorax is identified. The osseous structures are intact. There is mild to moderate spondylosis/enthesopathy within the tho racic spine. IMPRESSION: No significant change. No evidence for acute cardiopulmonary disease. Aortic calcifications. Further findings as detailed above. RPTAT: HVF .Saji Siddiqui MD, Date Time Electronically viewed and signed by .Saji Siddiqui MD, on 02/03/2017 19:06 .F/
[2017-02-03 20:24] LABS: ADD UMIC YES; UR ASCORBIC ACID NEGATIVE (NEGATIVE); UR BACTERIA FEW /HPF (NONE SEEN); UR BILIRUBIN (Dip) NEGATIVE (NEGATIVE); UR BLOOD (Dip) NEGATIVE (NEGATIVE); UR CLARITY CLEAR (CLEAR); UR COLOR YELLOW (YELLOW); UR GLUCOSE (Dip) 1+ mg/dL (NEGATIVE); UR KETONES (Dip) NEGATIVE (NEGATIVE); UR LEUKOCYTE ESTERASE (Dip) 1+ Leu/ul (NEGATIVE); UR MUCUS FEW /HPF (NONE SEEN); UR NITRITE (Dip) NEGATIVE (NEGATIVE); UR RBC 2 /HPF (0-5); UR SQUAMOUS EPITHELIAL CELL FEW /HPF (FEW); UR TOTAL PROTEIN (Dip) NEGATIVE (NEGATIVE); UR UROBILINOGEN (Dip) NEGATIVE (NEGATIVE)
[2017-02-03] MEDS ORDERED: KETOROLAC 15 MG INJ IV STA (21:23)
[2017-02-03 21:54] VITALS: BP 125/66; PULSE 69; RESP 18; TEMP 98
== END 2017-02-03 21:55 | disposition home or self-care (01) ==
LOC: E/R 15:18
DX: K42.9 Umbilical hernia without obstruction or gangrene (principal); E03.9 Hypothyroidism, unspecified; E66.9 Obesity, unspecified; Z79.82 Long term (current) use of aspirin; Z68.41 Body mass index [BMI] 40.0-44.9, adult; Z96.641 Presence of right artificial hip joint
CPT/HCPCS: 36415; 71010; 74176; 80053; 81001; 83690; 84484; 85025; 87086; 96374; 99285; J1885; J7040

== ENCOUNTER 2017-06-17 12:54 | Emergency (ER) | END 2017-06-17 17:48 | disposition home or self-care (01) ==

== ENCOUNTER 2017-06-20 18:55 | Emergency (ER) | END 2017-06-21 02:28 | disposition home or self-care (01) ==

== ENCOUNTER 2018-05-12 14:19 | Inpatient (IN) | payer MEDICARE, OTHER ==
[~2018-05-12] VITALS: Ht 154.9 cm; Wt 93.7 kg
[~2018-05-12 14:19] MED LIST changes: -ACET500C5 PO; -ASPI-535 PO; +ASPI-817 PO; -BENZ100C70 PO; +CEPH500C PO; +CYAN-23 PO; -CYAN100T PO; -FISH1CAP PO; -FLUT16SP17 NASAL; +FOL8 PO; -FOLI-49 PO; +FURO20TA3 PO; +LEVO88TA3 PO; -LEVO88TA42 PO; -MAGN27TA2 PO; +MAGNESIUM 250MG PO; +METF500T24 PO; -METF500T4 PO; +NAPR-688 PO; +OMEG-105 PO; -PANT40TA3 PO; +SULF1TAB31 PO
[2018-05-12] MEDS ORDERED: HYDROmorphONE 2 MG/ML SYG IV ONE (15:30)
[2018-05-12] MEDS ORDERED: ONDANSETRON 4 MG INJ IV ONE (15:30)
--- NOTE | 2018-05-12 15:34 | ERD ---
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 She said when she bent over to pick him up to try to stand up and created a sharp pain in her thoracic region between her shoulder blades. The pain is sharp worse with movement better with rest no radiation no shortness of breath or chest pain no numbness or weakness or focal neurological complaints ROS All systems reviewed and are negative except as per history of present illness. Medications Home Meds Reported Medications Magnesium Oxide (Magnesium) 250 Mg Tablet, 250 MG PO DAILY, TAB 05/12/18 Cyanocobalamin* (Vitamin B-12*) 1,000 Mcg Tablet.sa, 1000 MCG PO DAILY, TAB 05/12/18 Furosemide* (Furosemide*) 20 Mg Tablet, 20 MG PO DAILY, #60 TAB 05/12/18 Levothyroxine Sodium* (Levothyroxine Sodium*) 88 Mcg Tablet, 88 MCG PO BEFORE BREAKFAST, #30 TAB 05/12/18 Aspirin* (Aspirin* EC) 81 Mg Tablet.dr, 81 MG PO DAILY, TAB 05/12/18 Cholecalciferol* (Vitamin D3*) 1,000 Unit Tablet, 1000 UNIT PO DAILY, TAB 05/12/18 Losartan-Hydrochlorothiazide (Losartan-HCTZ) 100-25 Mg Tab, 1 TAB PO DAILY, TAB 05/12/18 Multivitamins* (Theragran*) 1 Tab Tab, 1 TAB PO DAILY, TAB 05/12/18 Folic Acid* (Folic Acid*) 0.8 Mg Tablet, 0.8 MG PO DAILY, TAB 05/12/18 Discontinued Reported Medications Cephalexin* (Cephalexin*) 500 Mg Capsule, 500 MG PO BID for 7 Days, #14 CAP 06/20/17 [Magnesium 250MG] No Conflict Check, 1 TAB PO DAILY 06/20/17 Folic Acid (Fa-8) 0.8 Mg Tablet, 0.8 MG PO DAILY, TAB 06/20/17 Cholecalciferol (Vitamin D3) 5,000 Unit Tablet, 5000 UNIT PO DAILY, TAB 06/20/17 [place]-3 Fatty Acids/Fish Oil (Fish Oil 1,200 mg Softgel) 1 Each Capsule, 1 EACH PO BID, CAP 06/20/17 Cyanocobalamin (Vitamin B-12) (Vitamin B-12) 1,000 Mcg Capsule, 1000 MCG PO QAM, CAP 06/20/17 Losartan-Hydrochlorothiazide (Losartan-HCTZ) 100-25 Mg Tab, 1 TAB PO DAILY, TAB 06/20/17 Levothyroxine Sodium* (Levothyroxine Sodium*) 88 Mcg Tablet, 88 MCG PO BEFORE BREAKFAST, #30 TAB 06/20/17 Metformin Hcl* (Metformin Hcl*) 500 Mg Tablet, 500 MG PO WITH BREAKFAST, #30 TAB 06/20/17 Furosemide* (Furosemide*) 20 Mg Tablet, 20 MG PO DAILY, #60 TAB 06/20/17 Aspirin* (Aspirin* EC) 81 Mg Tablet.dr, 81 MG PO DAILY, TAB 06/20/17 Discontinued Scripts Naproxen* (Naproxen*) 500 Mg Tablet, 500 MG PO BID PRN for PAIN, #20 TAB Prov:TAO KIRKLAND DO 06/20/17 Sulfamethoxazole/Trimethoprim* (Bactrim Ds* Tablet) 1 Each Tablet, 1 TAB PO BID, #20 TAB Prov:TAO KIRKLAND DO 06/20/17 Allergies Allergies: Coded Allergies: hydrocodone (Verified Allergy, Mild, UPSET STOMACH , VOMITING, 05/12/18) PMhx/Soc History of Surgery: Yes (RIGHT HIP REPLACEMENT, NOSE, RIGHT THUMB BONE SPUR, BILATERAL FOOT BONE SPU) Anesthesia Reaction: No Hx Neurological Disorder: No Hx Respiratory Disorders: Yes (SLEEP APNEA ON CPAP AT NIGHT) Hx Cardiac Disorders: Yes (POOR BLOOD FLOW, VENOUS REFLUX IN LEGS) Hx Psychiatric Problems: Yes (DEPRESSION, ANXIETY) Hx Miscellaneous Medical Probl: Yes (HYPERLIPIDEMIA, hypothyroid, fibromyalgia) Hx Alcohol Use: Yes (OCCASIONAL) Hx Substance Use: No Hx Tobacco Use: Yes (quit in the 1970s) Smoking Status: Former smoker FmHx Family History: No coronary disease Physical Exam Vitals Vital Signs Date Temp Pulse Resp B/P (MAP) Pulse Ox O2 O2 Flow FiO2 Time Delivery Rate 05/12/18 97.9 79 22 153/69 98 14:43 (97) Physical Exam Const: Well-developed, well-nourished Head: Atraumatic, normocephalic Eyes: Normal Conjunctiva, PERRLA, EOMI, normal sclera, no nystagmus ENT: Normal External Ears, Nose and Mouth, moist mucus membranes. Neck: Full range of motion. No meningismus, no lymphadenopathy. Resp: Clear to auscultation bilaterally, no wheezing, rhonchi, rales Cardio: Regular rate and rhythm, no murmurs, S1 S2 present Abd: Soft, non tender x 4, non distended. Normal bowel sounds, no guarding or rebound, no pulsitile abdominal masses or bruits Skin: No petechiae or rashes, no ecchymosis , no maculopapular rash Back: Upper thoracic tenderness and spasm intrascapular Ext: No cyanosis, or edema, FROM x 4, normal inspection, neurovascularly intact x 4 Neur: Awake and alert, STR 5/5 x 4, sensation intact x 4, no focal findings, cerebellum intact Psych: Normal Mood and Affect Results 24 hrs Current Medications Medications Dose Sig/Emily Start Time Status Last (Trade) Ordered Route PRN Stop Time Admin Dose Reason Admin 0.5 mg ONCE ONCE 05/12/18 DC 05/12/18 Hydromorphone IV 15:30 15:57 HCl 05/12/18 15:31 (Dilaudid) Ondansetron 4 mg ONCE ONCE 05/12/18 DC 05/12/18 HCl (Zofran IV 15:30 15:57 Inj) 05/12/18 15:31 Procedures/MDM MR #: [id number] DOS: 05/12/18 1524 Ordering MD: DINORAH BAPTISTE DO Location: E/R Room/Bed: PROCEDURE: XR thoracic Spine. CLINICAL INDICATION: Back pain. Trauma TECHNIQUE: AP, swimmers, and lateral views of the thoracic spine were obtai florian. COMPARISON: No prior studies are available for comparison. FINDINGS: The thoracic kyphosis is maintained. No fracture or subluxation is seen. Diffuse osteopenia is seen. The vertebral body are normal in appearance. Multilevel endplate osteophytosis and disc height loss is seen. The posterior elements are unremarkable. The soft tissues appear normal. 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 RPTAT: HPNM Physician Sanjuana Date Time Electronically viewed and signed by Carlos Rahman Physician on 05/12/2018 16:17 / CC: DINORAH BAPTISTE DO [id number] Patient has a thoracic strain and will discharge home with pain medication. No evidence of fracture on her radiographs Patient feels much better at this time, and vital signs are normal, symptoms have improved. I did give strict instructions to return to the ED if symptoms co ntinue or worsen, patient will otherwise follow-up with primary care physician. Patient understood instructions and agreed to plan. Disclaimer: Inadvertent spelling and grammatical errors are likely due to EHR/dictation software use and do not reflect on the overall quality of patient care. Also, please note that the electronic time recorded on this note does not necessarily reflect the actual time of the patient encounter. Departure Diagnosis: Primary Impression: Thoracic myofascial strain Encounter type: initial encounter Qualified Codes: S29.019A - Strain of muscle and tendon of unspecified wall of thorax, initial encounter Condition: Stable DINORAH BAPTISTE DO May 12, 2018 15:34
[2018-05-12] MEDS ORDERED: LOSA1TAB25 PO (15:45)
[2018-05-12] MEDS ORDERED: MULTI PO (15:45)
[2018-05-12] MEDS ORDERED: FOL8 PO (15:45)
[2018-05-12] MEDS ORDERED: CHOL100062 PO (15:46)
[2018-05-12] MEDS ORDERED: LEVO88TA3 PO (15:46)
[2018-05-12] MEDS ORDERED: ASPI-817 PO (15:46)
[2018-05-12] MEDS ORDERED: FURO20TA3 PO (15:47)
[2018-05-12] MEDS ORDERED: CYAN100080 PO (15:48)
[2018-05-12] MEDS ORDERED: MAGN250T10 PO (15:49)
[2018-05-12] MEDS ORDERED: TRAM50TA2 PO (17:01)
[2018-05-12] MEDS ORDERED: METH500T PO (17:01)
[2018-05-12] MEDS ORDERED: ONDANSETRON 4 MG INJ IV STA (19:29)
[2018-05-12] MEDS ORDERED: morphine 4 MG/ML VIAL IV STA (19:29)
[2018-05-12] MEDS ORDERED: ONDANSETRON 4 MG INJ IV PRN ×2 (21:00→23:30)
[2018-05-12] MEDS ORDERED: ACETAMINOPHEN 325 MG TAB PO PRN ×2 (21:00→23:30)
[2018-05-12 22:03] VITALS: Ht 154.9 cm; Wt 93.7 kg
[2018-05-12 22:05] VITALS: BP 116/53; PULSE 80; RESP 18
[2018-05-12] MEDS ORDERED: SOD CHLORIDE 0.9% 1,000 ML IV SCH (23:30)
[2018-05-12] MEDS ORDERED: HYDROCODONE/APAP (5/325) TAB PO PRN (23:30)
[2018-05-12] MEDS ORDERED: DEXTROSE 50% 50 ML SYRINGE IV PRN ×2 (23:45)
[2018-05-12] MEDS ORDERED: GLUCOSE GEL 15 GRAM TUBE PO PRN ×2 (23:45)
[2018-05-12] MEDS ORDERED: GLUCOSE GEL 15 GRAM TUBE BUCCAL PRN (23:45)
[2018-05-12] MEDS ORDERED: GLUCAGON 1 MG INJ IM PRN (23:45)
[2018-05-13] MEDS: KETOROLAC 30 MG INJ IV PRN ×4 (00:20→21:22)
[2018-05-13 01:21] VITALS: BP 14/52; PULSE 73; RESP 18
[2018-05-13] MEDS: ACCU-CHEK XX SCH (02:00)
[2018-05-13] MEDS ORDERED: PANTOPRAZOLE 40 MG INJ IV SCH (06:00)
[2018-05-13 08:19] VITALS: BP 120/63; PULSE 58; RESP 18
[2018-05-13] MEDS: FAMOTIDINE 20 MG INJ IV SCH (08:23)
[2018-05-13] MEDS: INSULIN ASPART [NOVOLOG] 3 ML PEN SC SCH ×4 (08:32→20:35)
--- NOTE | 2018-05-13 13:07 | QN ---
Documentation Comment seen and examined NINFA MUELLER MD May 13, 2018 13:07
[2018-05-13] MEDS ORDERED: morphine 2 MG INJ IV PRN (13:30)
[2018-05-13] MEDS ORDERED: AZITHROMYCIN 500 MG TAB PO ONE (13:30)
[2018-05-13] MEDS ORDERED: PROMETHAZINE/CODEINE 5ML CUP PO PRN (13:30)
[2018-05-13] MEDS: ALBUTEROL/IPRATROPIUM (NEB) 3 ML AMP HHN SCH ×2 (14:00→21:02)
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
[2018-05-13] MEDS: CYANOCOBALAMIN 500 MCG TAB PO SCH (15:18)
[2018-05-13] MEDS: CHOLECALCIFEROL 1,000 UNIT TAB PO SCH (15:19)
[2018-05-13] MEDS: FOLIC ACID 0.4 MG TAB PO SCH (15:19)
[2018-05-13] MEDS: METHOCARBAMOL 500 MG TAB PO SCH ×2 (15:19→21:30)
[2018-05-13] MEDS: MULTIVITAMINS THERAPEUTIC TAB PO SCH (15:19)
[2018-05-13] MEDS: ASPIRIN (EC) 81 MG TAB PO SCH (15:19)
[2018-05-13] MEDS: FUROSEMIDE 20 MG TAB PO SCH (15:19)
[2018-05-13 17:13] VITALS: BP 131/57; PULSE 66; RESP 16
[2018-05-13] MEDS: traMADol 50 MG TAB PO SCH (17:36)
[2018-05-13 20:00] VITALS: BP 139/70; PULSE 65; RESP 18
[2018-05-14] MEDS: ACCU-CHEK XX SCH (01:42)
[2018-05-14] MEDS: ALBUTEROL/IPRATROPIUM (NEB) 3 ML AMP HHN SCH ×4 (01:44→19:41)
[2018-05-14 02:00] VITALS: BP 132/61; PULSE 60; RESP 18
[2018-05-14] MEDS: METHOCARBAMOL 500 MG TAB PO SCH ×3 (05:45→20:52)
[2018-05-14] MEDS: KETOROLAC 30 MG INJ IV PRN ×2 (05:49→13:24)
[2018-05-14] MEDS: traMADol 50 MG TAB PO SCH ×5 (06:00→23:39)
[2018-05-14] MEDS: LEVOTHYROXINE 88 MCG TAB PO SCH (06:06)
[2018-05-14 08:21] VITALS: BP 156/63; PULSE 71; RESP 16
[2018-05-14] MEDS: INSULIN ASPART [NOVOLOG] 3 ML PEN SC SCH ×4 (08:35→20:59)
[2018-05-14] MEDS: FUROSEMIDE 20 MG TAB PO SCH (08:36)
[2018-05-14] MEDS: ASPIRIN (EC) 81 MG TAB PO SCH (08:36)
[2018-05-14] MEDS: CHOLECALCIFEROL 1,000 UNIT TAB PO SCH (08:36)
[2018-05-14] MEDS: FOLIC ACID 0.4 MG TAB PO SCH (08:36)
[2018-05-14] MEDS: MULTIVITAMINS THERAPEUTIC TAB PO SCH (08:36)
[2018-05-14] MEDS: CYANOCOBALAMIN 500 MCG TAB PO SCH (08:37)
[2018-05-14] MEDS: FAMOTIDINE 20 MG INJ IV SCH (08:37)
[2018-05-14] MEDS ORDERED: morphine 2 MG INJ IV PRN (09:30)
--- NOTE | 2018-05-14 10:38 | PN ---
Date/Time of Note Date/Time of Note DATE: 05/14/18 TIME: 10:38 Assessment/Plan VTE Prophylaxis Risk score (from Nsg)>0 risk: 6 SCD applied (from Nsg): Yes Pharmacological prophylaxis: NA/contraindicated Pharm contraindication: low risk/ambulating Lines/Catheters IV Catheter Type (from Nrsg): [place] Urinary Cath still in place: No Assessment/Plan Hospital Course This is a 73-year-old female who presented with: 1. Acute onset of upper back, status post picking up her dog. CT C spine and T spine There is multilevel degenerative changes resulting in moderate central canal stenosis at the C4-5 , C5-6 and C6-7 levels. Mild bilateral C6-7 neural foraminal narrowing is seen . thoracic spine demonstrates multilevel degenerative changes resulting in multilevel neural foraminal narrowing, severe at the left T4-5 level with moderate to severe neural foraminal narrowing at the right T3-4 level. 2. Dehydration with elevated BUN to creatinine ratio. 3. Diabetes. 4. Bronchitis. 5. Hypertension. 6. Sciatica. 7. Osteoarthritis. 8. History of fibromyalgia. 9. History of spondylolisthesis. 10. Hypothyroidism. 11. Hypercholesterolemia. 12. Depression. 13. Obstructive sleep apnea. Plan - Pain c with morphine/tramadol/toradol, and allergic to hydrocodone - Talked To Dr. Grady who reviewed the images requested MRI of the C in the T- spine also C-spine x-ray with flexion and extension -PT OT -Aspirin/Lasix -Continue with home medication] -GI/DVT' prophylaxsis Result Diagram: 05/12/18212705/12/182103 Results 24hrs Laboratory Tests Test 05/13/18 12:27 05/13/18 17:31 05/13/18 20:32 05/14/18 01:42 Bedside Glucose 177 151 207 181 Test 05/14/18 08:30 Bedside Glucose 161 Subjective 24 Hr Interval Summary Free Text/Dictation CT of the C-spine and the T-spine noted Patient was little shaky in the morning better now Exam/Review of Systems Exam Vitals Vital Signs Date Temp Pulse Resp B/P (MAP) Pulse Ox O2 O2 Flow FiO2 Time Delivery Rate 05/14/18 97.6 71 16 156/63 95 08:21 (94) 05/14/18 21 07:40 05/14/18 2.0 01:45 05/14/18 Nasal 01:45 Cannula Intake and Output 05/13/18 05/13/18 05/14/18 1515:00 23:00 07:00 IntakeIntake Total 1460 ml 960 ml 200 ml BalanceBalance 1460 ml 960 ml 200 ml Exam GENERAL: The patient is awake, alert, oriented, has some upper back pain. NECK: Supple. No JVD. HEART: Regular rate and rhythm. ABDOMEN: Obese. Umbilical hernia. Positive bowel sounds. EXTREMITIES: Trace edema. Results Results 24hrs Laboratory Tests Test 05/13/18 12:27 05/13/18 17:31 05/13/18 20:32 05/14/18 01:42 Bedside Glucose 177 151 207 181 Test 05/14/18 08:30 Bedside Glucose 161 Medications Medication Current Medications Acetaminophen (Tylenol Tab) 650 mg Q6H PRN PO MILD PAIN(1-3)OR ELEVATED TEMP; Start 05/12/18 at 23:30 Ondansetron HCl (Zofran Inj) 4 mg Q6H PRN IV NAUSEA AND/OR VOMITING; Start 05/12/18 at 23:30 Acetaminophen/ Hydrocodone Bitart ([place] (5/325)) 1 tab Q4H PRN PO MODERATE PAIN LEVEL 4-6; Start 05/12/18 at 23:30 Ketorolac Tromethamine (Toradol) 30 mg Q6H PRN IV PAIN LEVEL 1-3 Last administered on 05/14/18at 05:49; Admin Dose 30 MG; Start 05/12/18 at 23:30; Stop 05/15/18 at 23:29 Diagnostic Test (Pha) (Accu-Chek) 1 ea 02 XX Last administered on 05/14/18at 01:42; Admin Dose 1 EA; Start 05/13/18 at 02:00 Insulin Aspart (Novolog Insulin Pen) NOVOLOG *MILD* ALGORITHM WITH MEALS BEDTIME SC Last administered on 05/14/18at 08:35; Admin Dose 1 UNIT; Start 05/13/18 at 08:00 Famotidine (Pepcid Iv) 20 mg DAILY IV Last administered on 05/14/18at 08:37; Admin Dose 20 MG; Start 05/13/18 at 09:00 Miscellaneous Information 1 ea NOTE XX ; Start 05/12/18 at 23:45 Glucose (Glutose) 15 gm Q15M PRN PO DECREASED GLUCOSE; Start 05/12/18 at 23:45 Glucose (Glutose) 22.5 gm Q15M PRN PO DECREASED GLUCOSE; Start 05/12/18 at 23:45 Dextrose (D50w Syringe) 25 ml Q15M PRN IV DECREASED GLUCOSE; Start 05/12/18 at 23:45 Dextrose (D50w Syringe) 50 ml Q15M PRN IV DECREASED GLUCOSE; Start 05/12/18 at 23:45 Glucagon (Glucagen) 1 mg Q15M PRN IM DECREASED GLUCOSE; Start 05/12/18 at 23:45 Glucose (Glutose) 15 gm Q15M PRN BUCCAL DECREASED GLUCOSE; Start 05/12/18 at 23:45 Aspirin (Halfprin) 81 mg DAILY PO Last administered on 05/14/18 08:36; Admin Dose 81 MG; Start 05/13/18 at 13:30 Cholecalciferol (Vitamin D) 1,000 unit DAILY PO Last administered on 05/14/18 08:36; Admin Dose 1,000 UNIT; Start 05/13/18 at 13:30 Cyanocobalamin (Vitamin B12) 1,000 mcg DAILY PO Last administered on 05/14/18 08:37; Admin Dose 1,000 MCG; Start 05/13/18 at 13:30 Folic Acid (Folic Acid) 0.8 mg DAILY PO Last administered on 05/14/18 08:36; Admin Dose 0.8 MG; Start 05/13/18 at 13:30 Furosemide (Lasix) 20 mg DAILY PO Last administered on 05/14/18 08:36; Admin Dose 20 MG; Start 05/13/18 at 13:30 Levothyroxine Sodium (Synthroid) 88 mcg BEFORE BREAKFAST PO Last administered on 05/14/18 06:06; Admin Dose 88 MCG; Start 05/14/18 at 07:00 Methocarbamol (Robaxin) 500 mg Q8 PO Last administered on 05/14/18 05:45; Admin Dose 500 MG; Start 05/13/18 at 14:00 Multivitamins Therapeutic (Theragran) 1 tab DAILY PO Last administered on 05/14/18 08:36; Admin Dose 1 TAB; Start 05/13/18 at 13:30 Tramadol HCl (Ultram) 50 mg Q6 PO Last administered on 05/13/18at 17:36; Admin Dose 50 MG; Start 05/13/18 at 18:00 Albuterol/ Ipratropium (Duoneb) 3 ml Q6H RESP THERAPY HHN Last administered on 05/14/18at 07:39; Admin Dose 3 ML; Start 05/13/18 at 14:00 Promethazine HCl/ Codeine (Phenergan/ Codeine) 5 ml Q4H PRN PO COUGH; Start at 13:30 Morphine Sulfate (morphine) 1 mg Q3H PRN IV SEVERE PAIN LEVEL 7-10; Start 05/14/18 at 09:30 NINFA MUELLER MD May 14, 2018 10:38
[2018-05-14 15:30] VITALS: BP 132/75; PULSE 74; RESP 18
[2018-05-14 20:11] VITALS: BP 135/62; PULSE 70; RESP 18
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
[2018-05-15 01:49] VITALS: BP 144/67; PULSE 68; RESP 18
[2018-05-15] MEDS: ACCU-CHEK XX SCH (02:00)
[2018-05-15] MEDS: ALBUTEROL/IPRATROPIUM (NEB) 3 ML AMP HHN SCH ×3 (02:00→14:00)
[2018-05-15] MEDS: LEVOTHYROXINE 88 MCG TAB PO SCH (06:31)
[2018-05-15] MEDS: traMADol 50 MG TAB PO SCH ×2 (06:31→12:00)
[2018-05-15] MEDS: METHOCARBAMOL 500 MG TAB PO SCH ×2 (06:31→13:50)
[2018-05-15 08:29] VITALS: BP 151/70; PULSE 69; RESP 18
[2018-05-15] MEDS: INSULIN ASPART [NOVOLOG] 3 ML PEN SC SCH ×2 (08:31→12:00)
[2018-05-15] MEDS: CYANOCOBALAMIN 500 MCG TAB PO SCH (08:35)
[2018-05-15] MEDS: CHOLECALCIFEROL 1,000 UNIT TAB PO SCH (08:35)
[2018-05-15] MEDS: FOLIC ACID 0.4 MG TAB PO SCH (08:35)
[2018-05-15] MEDS: FAMOTIDINE 20 MG INJ IV SCH (08:35)
[2018-05-15] MEDS: FUROSEMIDE 20 MG TAB PO SCH (08:36)
[2018-05-15] MEDS: ASPIRIN (EC) 81 MG TAB PO SCH (08:36)
[2018-05-15] MEDS: KETOROLAC 30 MG INJ IV PRN (08:48)
[2018-05-15] MEDS: MULTIVITAMINS THERAPEUTIC TAB PO SCH (09:26)
--- NOTE | 2018-05-15 12:41 | PN ---
Date/Time of Note Date/Time of Note DATE: 05/15/18 TIME: 12:39 Assessment/Plan VTE Prophylaxis Risk score (from Nsg)>0 risk: 5 SCD applied (from Nsg): Yes Pharmacological prophylaxis: LMWH Lines/Catheters IV Catheter Type (from Nrsg): Peripheral IV Urinary Cath still in place: No Assessment/Plan Hospital Course 1. Acute onset of upper back, status post picking up her dog. CT C spine and T spine There is multilevel degenerative changes resulting in moderate central canal stenosis at the C4-5 , C5-6 and C6-7 levels. Mild bilateral C6-7 neural foraminal narrowing is seen . thoracic spine demonstrates multilevel degenerative changes resulting in multilevel neural foraminal narrowing, severe at the left T4-5 level with moderate to severe neural foraminal narrowing at the right T3-4 level.MRI shows: Multilevel disc desiccation at the C2-3 through T2-3 levels with severe disc space height loss and degenerative endplate changes at C6-7. 2. Dehydration with elevated BUN to creatinine ratio. 3. Diabetes. 4. Bronchitis. 5. Hypertension. 6. Sciatica. 7. Osteoarthritis. 8. History of fibromyalgia. 9. History of spondylolisthesis. 10. Hypothyroidism. 11. Hypercholesterolemia. 12. Depression. 13. Obstructive sleep apnea. Assessment/Plan - Pain c with morphine/tramadol/toradol, and allergic to hydrocodone - Talked To Dr. Joyce who reviewed the images requested MRI of the C in the T- spine also C-spine x-ray with flexion and extension -PT OT at [facility] -Aspirin/Lasix hypoglycemic control -Continue with home medication] -GI famotidine -DVT' prophylaxis Result Diagram: 05/12/18212705/15/18 0507 Results 24hrs Laboratory Tests Test 05/14/18 13:18 05/14/18 17:51 05/14/18 20:50 05/15/18 02:03 Bedside Glucose 159 166 223 H 160 Test 05/15/18 05:07 05/15/18 08:29 Sodium Level 142 Potassium Level 4.2 Chloride Level 107 Carbon Dioxide Level 29 Anion Gap 6 Blood Urea Nitrogen 32 H Creatinine 0.78 Est Glomerular Filtrat Rate mL/min Glucose Level 134 Calcium Level 8.6 Phosphorus Level 4.4 Magnesium Level 2.3 Bedside Glucose 142 Subjective 24 Hr Interval Summary Respiratory: cough Gastrointestinal: no complaints Skin: pruritis Exam/Review of Systems Exam Vitals Vital Signs Date Temp Pulse Resp B/P (MAP) Pulse Ox O2 O2 Flow FiO2 Time Delivery Rate 05/15/18 74 20 95 21 09:15 05/15/18 98.6 151/70 08:29 (97) 05/14/18 2.0 01:45 05/14/18 Nasal 01:45 Cannula Intake and Output 05/14/18 05/14/18 05/15/18 1515:00 23:00 07:00 IntakeIntake Total 1080 ml 480 ml OutputOutput Total 2 ml 1 ml BalanceBalance 1078 ml 479 ml Constitutional: alert, oriented Eyes: nl conjunctiva Respiratory: congested cough Cardiovascular: regular rate and rhythm Gastrointestinal: soft Results Results 24hrs Laboratory Tests Test 05/14/18 13:18 05/14/18 17:51 05/14/18 20:50 05/15/18 02:03 Bedside Glucose 159 166 223 H 160 Test 05/15/18 05:07 05/15/18 08:29 Sodium Level 142 Potassium Level 4.2 Chloride Level 107 Carbon Dioxide Level 29 Anion Gap 6 Blood Urea Nitrogen 32 H Creatinine 0.78 Est Glomerular Filtrat Rate mL/min Glucose Level 134 Calcium Level 8.6 Phosphorus Level 4.4 Magnesium Level 2.3 Bedside Glucose 142 Medications Medication Current Medications Acetaminophen (Tylenol Tab) 650 mg Q6H PRN PO MILD PAIN(1-3)OR ELEVATED TEMP; Start 05/12/18 at 23:30 Ondansetron HCl (Zofran Inj) 4 mg Q6H PRN IV NAUSEA AND/OR VOMITING; Start 05/12/18 at 23:30 Acetaminophen/ Hydrocodone Bitart ([place] (5/325)) 1 tab Q4H PRN PO MODERATE PAIN LEVEL 4-6; Start 05/12/18 at 23:30 Ketorolac Tromethamine (Toradol) 30 mg Q6H PRN IV PAIN LEVEL 1-3 Last administered on 05/15/18at 08:48; Admin Dose 30 MG; Start 05/12/18 at 23:30; Stop 05/15/18 at 23:29 Diagnostic Test (Pha) (Accu-Chek) 1 ea 02 XX Last administered on 05/14/18at 01:42; Admin Dose 1 EA; Start 05/13/18 at 02:00 Insulin Aspart (Novolog Insulin Pen) NOVOLOG *MILD* ALGORITHM WITH MEALS BEDTIME SC Last administered on 05/15/18 08:31; Admin Dose 1 UNIT; Start 05/13/18 at 08:00 Famotidine (Pepcid Iv) 20 mg DAILY IV Last administered on 05/15/18 08:35; Admin Dose 20 MG; Start 05/13/18 at 09:00 Miscellaneous Information 1 ea NOTE XX ; Start 05/12/18 at 23:45 Glucose (Glutose) 15 gm Q15M PRN PO DECREASED GLUCOSE; Start 05/12/18 at 23:45 Glucose (Glutose) 22.5 gm Q15M PRN PO DECREASED GLUCOSE; Start 05/12/18 at 23:45 Dextrose (D50w Syringe) 25 ml Q15M PRN IV DECREASED GLUCOSE; Start 05/12/18 at 23:45 Dextrose (D50w Syringe) 50 ml Q15M PRN IV DECREASED GLUCOSE; Start 05/12/18 at 23:45 Glucagon (Glucagen) 1 mg Q15M PRN IM DECREASED GLUCOSE; Start 05/12/18 at 23:45 Glucose (Glutose) 15 gm Q15M PRN BUCCAL DECREASED GLUCOSE; Start 05/12/18 at 23:45 Aspirin (Halfprin) 81 mg DAILY PO Last administered on 05/15/18 08:36; Admin Dose 81 MG; Start 05/13/18 at 13:30 Cholecalciferol (Vitamin D) 1,000 unit DAILY PO Last administered on 05/15/18 08:35; Admin Dose 1,000 UNIT; Start 05/13/18 at 13:30 Cyanocobalamin (Vitamin B12) 1,000 mcg DAILY PO Last administered on 05/15/18 08:35; Admin Dose 1,000 MCG; Start 05/13/18 at 13:30 Folic Acid (Folic Acid) 0.8 mg DAILY PO Last administered on 05/15/18 08:35; Admin Dose 0.8 MG; Start 05/13/18 at 13:30 Furosemide (Lasix) 20 mg DAILY PO Last administered on 05/15/18 08:36; Admin Dose 20 MG; Start 05/13/18 at 13:30 Levothyroxine Sodium (Synthroid) 88 mcg BEFORE BREAKFAST PO Last administered on 05/15/18 06:31; Admin Dose 88 MCG; Start 05/14/18 at 07:00 Methocarbamol (Robaxin) 500 mg Q8 PO Last administered on 05/15/18 06:31; Admin Dose 500 MG; Start 05/13/18 at 14:00 Multivitamins Therapeutic (Theragran) 1 tab DAILY PO Last administered on 05/15/18 09:26; Admin Dose 1 TAB; Start 05/13/18 at 13:30 Tramadol HCl (Ultram) 50 mg Q6 PO Last administered on 05/15/18 06:31; Admin Dose 50 MG; Start 05/13/18 at 18:00 Albuterol/ Ipratropium (Duoneb) 3 ml Q6H RESP THERAPY HHN Last administered on 05/15/18 09:15; Admin Dose 3 ML; Start 05/13/18 at 14:00 Promethazine HCl/ Codeine (Phenergan/ Codeine) 5 ml Q4H PRN PO COUGH Last administered on 05/14/18 20:52; Admin Dose 5 ML; Start 05/13/18 at 13:30 Morphine Sulfate (morphine) 1 mg Q3H PRN IV SEVERE PAIN LEVEL 7-10 Last administered on 05/15/18 01:59; Admin Dose 1 MG; Start 05/14/18 at 09:30 SABINO SHINE 29, 2019 12:41
--- NOTE | 2018-05-15 13:16 | DS ---
Date/Time of Note Date/Time of Note DATE: 05/15/18 TIME: 13:16 Discharge Summary Admission/Discharge Info Admit Date/Time May 13, 2018 at 10:38 Discharge Date/Time Patient Condition: Stable Hospital Course This is a 73-year-old woman with a past medical history of diabetes, which has been diet controlled off of medication for 1-month, history of obstructive sleep apnea, hypertension, fibromyalgia, depression, hypothyroidism, hypercholesterolemia, osteoarthritis, sciatica, peripheral neuropathy, carpal tunnel syndrome, spondylolisthesis, umbilical hernia, sinusitis, varicose veins, presented to the emergency department after having severe onset of upper cervical neck pain 4 days after bending to pick over her 25-pound dog. She was trying to pick her dog, all of a sudden, she started having sharp pain in the upper neck region. After that all of a sudden, she started having pain in her arms. She could not lift her arm and this made her come to the emergency department. The patient was seen by her round boner 2 to 3 weeks ago and was having bronchitis and also could not sleep at night so had got medication from him, but could not get it refilled because of some pharmacy issues. The patient has mild shortness of breath and has been having bad cough. Denies any chest pain, any abdominal pain, nausea, vomiting, diarrhea. On arrival to ED, vital signs showed blood pressure 145/92, pulse 92, saturating 98%. The patient had thoracic spine x-ray that show multilevel degenerative spondylosis of the thoracic spine and patient was admitted for intractable back pain. PAST MEDICAL HISTORY: 1. Diabetes. 2. Hypertension. 3. Hyperlipidemia. 4. Sleep apnea. 5. Fibromyalgia. 6. Depression. 7. Hypothyroidism. 8. Sciatica. 9. Carpal tunnel syndrome. 10. Spondylolisthesis. 11. Umbilical hernia. 12. Sinusitis. 13. Osteoarthritis. Admission dx: 1. Acute onset of upper back pain, status post picking up her dog. CT C spine and T spine showed: There is multilevel degenerative changes resulting in moderate central canal stenosis at the C4-5 , C5-6 and C6-7 levels. Mild bilateral C6-7 neural foraminal narrowing is seen. Thoracic spine demonstrates multilevel degenerative changes resulting in multilevel neural foraminal narrowing, severe at the left T4-5 level with moderate to severe neural foraminal narrowing at the right T3-4 level. 2. Dehydration with elevated BUN to creatinine ratio. 3. Diabetes. 4. Bronchitis. 5. Hypertension. 6. Sciatica. 7. Osteoarthritis. 8. History of fibromyalgia. 9. History of spondylolisthesis. 10. Hypothyroidism. 11. Hypercholesterolemia. 12. Depression. 13. Obstructive sleep apnea. 14. Obesity during hospitalization pt was in medsurg unit. Her pain was controlled with morphine/tramadol/toradol, because pt is allergic to hydrocodone. Dr Joyce, was consulting neurosurgeon, who reviewed the images of numerous CT scans, he additionally requested MRI of the C in the T-spine and also C-spine x-ray with flexion and extension. Per his recommendation there were no surgical intervention needed and pt was started on PT and OT. SHe was continued on her home medications and was given supportive care, cough syrup. Pt was c/ed with Aspirin/Lasix, no pharmaceutical DVT prophylaxis was engaged. Pt symptoms somehow improved and she was transferred to continue rehabilitation in ARU. Discharge dx: 1. Multilevel degenerative changes C spine with moderate central canal stenosis at the C4-5 , C5-6 and C6-7 levels. Mild bilateral C6-7 neural foraminal narrowing is seen. T 2. Thoracic spine multilevel degenerative changes with multilevel neural foraminal narrowing, severe at the left T4-5 level with moderate to severe neural foraminal narrowing at the right T3-4 level. 3. Diabetes. 4. Bronchitis. 5. Hypertension. 6. Sciatica. 7. Osteoarthritis. 8. History of fibromyalgia. 9. History of spondylolisthesis. 10. Hypothyroidism. 11. Hypercholesterolemia. 12. Depression. 13. Obstructive sleep apnea. 14. Obesity Home Meds Active Scripts Methocarbamol* (Robaxin*) 500 Mg Tab, 500 MG PO Q8, #14 TAB Prov:DINORAH BAPTISTE DO 05/12/18 Tramadol HCl (Tramadol HCl) 50 Mg Tablet, 50 MG PO Q6, #20 TAB Prov:DINORAH BAPTISTE DO 05/12/18 Reported Medications Magnesium Oxide (Magnesium) 250 Mg Tablet, 250 MG PO DAILY, TAB 05/12/18 Cyanocobalamin* (Vitamin B-12*) 1,000 Mcg Tablet.sa, 1000 MCG PO DAILY, TAB 05/12/18 Furosemide* (Furosemide*) 20 Mg Tablet, 20 MG PO DAILY, #60 TAB 05/12/18 Levothyroxine Sodium* (Levothyroxine Sodium*) 88 Mcg Tablet, 88 MCG PO BEFORE BREAKFAST, #30 TAB 05/12/18 Aspirin* (Aspirin* EC) 81 Mg Tablet.dr, 81 MG PO DAILY, TAB 05/12/18 Cholecalciferol* (Vitamin D3*) 1,000 Unit Tablet, 1000 UNIT PO DAILY, TAB 05/12/18 Losartan-Hydrochlorothiazide (Losartan-HCTZ) 100-25 Mg Tab, 1 TAB PO DAILY, TAB 05/12/18 Multivitamins* (Theragran*) 1 Tab Tab, 1 TAB PO DAILY, TAB 05/12/18 Folic Acid* (Folic Acid*) 0.8 Mg Tablet, 0.8 MG PO DAILY, TAB 05/12/18 Discontinued Reported Medications Cephalexin* (Cephalexin*) 500 Mg Capsule, 500 MG PO BID for 7 Days, #14 CAP 06/20/17 [Magnesium 250MG] No Conflict Check, 1 TAB PO DAILY 06/20/17 Folic Acid (Fa-8) 0.8 Mg Tablet, 0.8 MG PO DAILY, TAB 06/20/17 Cholecalciferol (Vitamin D3) 5,000 Unit Tablet, 5000 UNIT PO DAILY, TAB 06/20/17 [place]-3 Fatty Acids/Fish Oil (Fish Oil 1,200 mg Softgel) 1 Each Capsule, 1 EACH PO BID, CAP 06/20/17 Cyanocobalamin (Vitamin B-12) (Vitamin B-12) 1,000 Mcg Capsule, 1000 MCG PO QAM, CAP 06/20/17 Losartan-Hydrochlorothiazide (Losartan-HCTZ) 100-25 Mg Tab, 1 TAB PO DAILY, TAB 06/20/17 Levothyroxine Sodium* (Levothyroxine Sodium*) 88 Mcg Tablet, 88 MCG PO BEFORE BREAKFAST, #30 TAB 06/20/17 Metformin Hcl* (Metformin Hcl*) 500 Mg Tablet, 500 MG PO WITH BREAKFAST, #30 TAB 06/20/17 Furosemide* (Furosemide*) 20 Mg Tablet, 20 MG PO DAILY, #60 TAB 06/20/17 Aspirin* (Aspirin* EC) 81 Mg Tablet.dr, 81 MG PO DAILY, TAB 06/20/17 Discontinued Scripts Naproxen* (Naproxen*) 500 Mg Tablet, 500 MG PO BID PRN for PAIN, #20 TAB Prov:GREEN,TAO 06/20/17 Sulfamethoxazole/Trimethoprim* (Bactrim Ds* Tablet) 1 Each Tablet, 1 TAB PO BID, #20 TAB Prov:TAO KIRKLAND 06/20/17 Primary Care Provider Vu Reece MD Time spent on discharge: < 30 minutes Pending Labs Laboratory Tests Test 05/14/18 13:18 05/14/18 17:51 05/14/18 20:50 05/15/18 02:03 Bedside 159 166 223 160 Glucose mg/dL (70-220) mg/dL (70-220) mg/dL (70-220) mg/dL (70-220) Test 05/15/18 05:07 05/15/18 08:29 Sodium Level 142 mmol/L (135-144 ) Potassium 4.2 Level mmol/L (3.5-5.1 ) Chloride Level 107 mmol/L (97-110) Carbon Dioxide 29 Level mmol/L (21-31) Anion Gap 6 (5-13) Blood Urea 32 mg/dl (7-20) Nitrogen Creatinine 0.78 mg/dl (0.44-1.0 0) Est Glomerular mL/min (>60) Filtrat Rate mL/min Glucose Level 134 mg/dl (70-220) Calcium Level 8.6 mg/dl (8.4-10.2 ) Phosphorus 4.4 Level mg/dl (2.5-4.9) Magnesium 2.3 Level mg/dl (1.7-2.5) Bedside 142 Glucose mg/dL (70-220) SABINO SHINE May 15, 2018 13:16
[2018-05-15 14:37] VITALS: BP 153/63; PULSE 71; RESP 16
--- NOTE | 2018-05-15 19:15 | PN ---
DATE: 05/15/2018 The patient is unchanged has been transferred to rehabilitation. I reviewed her MRI of the cervical spine and MRI of the thoracic spine. The cervical spine showed some central canal stenosis, moderate in severity most significant at the C4 to C5 and C6 to C7 levels. However, there is no evidence of cord signal change. These can be seen as posterior osteophytes on the CT scan. The thoracic MRI as well shows multilevel spondylosis. There is no significant central canal stenosis per radiologist's report though there appears to be some mild lateral stenosis at the T2 to T3 level which is difficult to assess. On sagittal, there appears to be some slight overall canal narrowing laterally rather than the AP dimension, but I see no evidence of cord signal change. 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 There is no associated edema or enlargement of the cord. Overall, I do not see any acute findings to suggest fracture or ligamentous injury. I see no acute compression and the patient is not symptomatic with any signs or symptoms of myelopathy. I do not see a clearly identifiable source of the patient's symptoms which are improving. The patient does have cervical stenosis but this is asymptomatic and observation is simply recommended at this time. The patient had stated that she would not be decline for any surgical intervention; however given the patient is not myelopathic, intervention is not indicated currently. Dictated By: BOBO LEMOS MD, LG/KARYNA Conf#: [id number] DID#: [id number] CC: NINFA MUELLER;*Ralph* BERNABE
[2018-05-16] MEDS ORDERED: FAMOTIDINE 20 MG TAB PO SCH (09:00)
== END 2018-05-15 15:20 | DRG 552 ==
LOC: E/R 14:19 → 2NE 20:35 → EDBEDREQ 20:52 → OBSVTOIN 05-13 10:38
PROVIDERS: ADMIT Internal Medicine; ATTEND Internal Medicine
DX: M48.02 Spinal stenosis, cervical region (principal); M48.04 Spinal stenosis, thoracic region; E86.0 Dehydration; Z96.641 Presence of right artificial hip joint; G47.33 Obstructive sleep apnea (adult) (pediatric); F32.9 Major depressive disorder, single episode, unspecified; F41.9 Anxiety disorder, unspecified; E78.5 Hyperlipidemia, unspecified; E03.9 Hypothyroidism, unspecified; M79.7 Fibromyalgia; E11.9 Type 2 diabetes mellitus without complications; J40 Bronchitis, not specified as acute or chronic; I10 Essential (primary) hypertension; M54.30 Sciatica, unspecified side; M19.90 Unspecified osteoarthritis, unspecified site; M43.10 Spondylolisthesis, site unspecified; Z79.4 Long term (current) use of insulin; Z79.84 Long term (current) use of oral hypoglycemic drugs; Z79.82 Long term (current) use of aspirin
CPT/HCPCS: 72040; 72072; 72125; 72128; 72141; 72146; 80048; 82962; 83036; 83735; 84100; 85025; 94640; 94664; 96374; 96375; 96376; 97110; 97116; 97162; 97165; 97530; 99217; G0378; J1170; J1815; J1885; J2270; J2405; J7030

== ENCOUNTER 2018-05-15 15:31 | Inpatient (IN) | payer MEDICARE, OTHER ==
[~2018-05-15] VITALS: Ht 154.9 cm; Wt 93.7 kg
[~2018-05-15 15:31] MED LIST changes: -CEPH500C PO; +CHOL100062 PO; -CHOL500010 PO; -CYAN-23 PO; +CYAN100080 PO; +MAGN250T10 PO; -MAGNESIUM 250MG PO; -METF500T24 PO; +METH500T PO; +MULTI PO; -NAPR-688 PO; -OMEG-105 PO; -SULF1TAB31 PO; +TRAM50TA2 PO
[2018-05-15 16:00] VITALS: BP 148/74; PULSE 63; RESP 18
[2018-05-15] MEDS ORDERED: PENDING SANTYL ORDER FOR WOUND CARE XX PRN (16:00)
[2018-05-15] MEDS ORDERED: MAGNESIUM HYDROXIDE 30ML CUP PO PRN (16:30)
[2018-05-15] MEDS ORDERED: BISACODYL 10 MG SUPP PR PRN (16:30)
[2018-05-15] MEDS ORDERED: ACETAMINOPHEN 325 MG TAB PO PRN ×2 (16:30→19:30)
[2018-05-15] MEDS ORDERED: LACTULOSE 30ML CUP PO PRN (16:30)
[2018-05-15] MEDS ORDERED: morphine 2 MG INJ IV PRN (19:30)
[2018-05-15] MEDS ORDERED: ONDANSETRON 4 MG INJ IV PRN (19:30)
[2018-05-15] MEDS ORDERED: KETOROLAC 30 MG INJ IV PRN (19:30)
[2018-05-15] MEDS: traMADol 50 MG TAB PO SCH (19:30)
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
[2018-05-15 19:45] VITALS: BP 147/65; PULSE 69; RESP 18
[2018-05-15] MEDS: ALBUTEROL/IPRATROPIUM (NEB) 3 ML AMP HHN SCH (20:00)
[2018-05-15] MEDS ORDERED: GLUCOSE GEL 15 GRAM TUBE PO PRN ×2 (20:00)
[2018-05-15] MEDS ORDERED: GLUCAGON 1 MG INJ IM PRN (20:00)
[2018-05-15] MEDS ORDERED: GLUCOSE GEL 15 GRAM TUBE BUCCAL PRN (20:00)
[2018-05-15] MEDS ORDERED: ACETAMINOPHEN 325/HYDROC 7.5 15 ML CUP PO PRN (20:00)
[2018-05-15] MEDS ORDERED: DEXTROSE 50% 50 ML SYRINGE IV PRN ×2 (20:00)
[2018-05-15] MEDS ORDERED: ZOLPIDEM 5 MG TAB PO PRN (20:00)
[2018-05-15] MEDS: INSULIN ASPART [NOVOLOG] 3 ML PEN SC SCH (21:00)
[2018-05-15] MEDS: DOCUSATE SODIUM 100 MG CAP PO SCH (21:00)
[2018-05-15] MEDS: SENNA TAB PO SCH (21:00)
[2018-05-15] MEDS: METHOCARBAMOL 500 MG TAB PO SCH (22:27)
[2018-05-16] MEDS: ALBUTEROL/IPRATROPIUM (NEB) 3 ML AMP HHN SCH ×5 (01:42→19:43)
[2018-05-16 02:00] VITALS: BP 138/70; PULSE 64; RESP 18
[2018-05-16] MEDS: ACCU-CHEK XX SCH (02:00)
[2018-05-16] MEDS: METHOCARBAMOL 500 MG TAB PO SCH ×3 (05:49→21:07)
[2018-05-16] MEDS: traMADol 50 MG TAB PO SCH ×4 (05:50→17:33)
[2018-05-16 07:00] VITALS: BP 188/74; PULSE 63; RESP 18
[2018-05-16] MEDS: INSULIN ASPART [NOVOLOG] 3 ML PEN SC SCH ×4 (08:29→21:00)
[2018-05-16 08:37] VITALS: BP 145/75; PULSE 70
[2018-05-16] MEDS: CHOLECALCIFEROL 1,000 UNIT TAB PO SCH (08:52)
[2018-05-16] MEDS: HYDROCHLOROTHIAZIDE 25 MG TAB PO SCH (08:53)
[2018-05-16] MEDS: FOLIC ACID 0.4 MG TAB PO SCH (08:53)
[2018-05-16] MEDS: CYANOCOBALAMIN 500 MCG TAB PO SCH (08:54)
[2018-05-16] MEDS: DOCUSATE SODIUM 100 MG CAP PO SCH ×2 (08:54→20:22)
[2018-05-16] MEDS: ASPIRIN (EC) 81 MG TAB PO SCH (08:54)
[2018-05-16] MEDS: MULTIVITAMINS THERAPEUTIC TAB PO SCH (08:54)
[2018-05-16] MEDS: FUROSEMIDE 20 MG TAB PO SCH (08:54)
[2018-05-16] MEDS: LOSARTAN 50 MG TAB PO SCH (08:57)
[2018-05-16] MEDS: FAMOTIDINE 20 MG INJ IV SCH (08:58)
[2018-05-16] MEDS: ENOXAPARIN 40 MG/0.4 ML SYG SC SCH (09:00)
[2018-05-16] MEDS ORDERED: ASPIRIN (EC) 81 MG TAB PO SCH (09:00)
--- NOTE | 2018-05-16 09:58 | PN ---
Date/Time of Note Date/Time of Note DATE: 05/16/18 TIME: 09:57 Assessment/Plan VTE Prophylaxis Risk score (from Nsg)>0 risk: 3 SCD applied (from Nsg): No SCD contraindicated: other (fall risk) Pharmacological prophylaxis: LMWH Lines/Catheters IV Catheter Type (from Nrs): Saline Lock Assessment/Plan Hospital Course 1. Acute onset of upper back, status post picking up her dog. CT C spine and T spine There is multilevel degenerative changes resulting in moderate central canal stenosis at the C4-5 , C5-6 and C6-7 levels. Mild bilateral C6-7 neural foraminal narrowing is seen . thoracic spine demonstrates multilevel degenerative changes resulting in multilevel neural foraminal narrowing, severe at the left T4-5 level with moderate to severe neural foraminal narrowing at the right T3-4 level.MRI shows: Multilevel disc desiccation at the C2-3 through T2-3 levels with severe disc space height loss and degenerative endplate changes at C6-7. 2. Dehydration with elevated BUN to creatinine ratio. 3. Diabetes. 4. Bronchitis. 5. Hypertension. 6. Sciatica. 7. Osteoarthritis. 8. History of fibromyalgia. 9. History of spondylolisthesis. 10. Hypothyroidism. 11. Hypercholesterolemia. 12. Depression. 13. Obstructive sleep apnea. 14. UTI Assessment/Plan -DR Joyce neurosergery consult -PT OT at [facility] -DVT prophylaxis start Lovenox -cough suppressant prn. -fall precaution -pt requested Synthroid at the night time - Pain c with morphine/tramadol/toradol, and allergic to hydrocodone -start Rocephin for UTI -c/w Aspirin/Lasix -hypoglycemic control -GI famotidine Result Diagram: 05/16/18 0640 05/16/18 0640 Results 24hrs Laboratory Tests Test 05/15/18 17:00 05/15/18 17:30 05/15/18 20:04 05/16/18 06:40 Urine Color SHAYLA Urine Clarity CLOUDY A Urine pH 5.0 Urine Specific 1.027 [place] Urine Ketones NEGATIVE Urine Nitrite NEGATIVE Urine Bilirubin NEGATIVE Urine Urobilinogen NEGATIVE Urine Leukocyte 3+ H Esterase Urine Microscopic 7 H RBC Urine Microscopic 57 H WBC Urine Squamous MANY A Epithelial Cells Urine Calcium FEW A Oxalate Crystals Urine Bacteria FEW A Urine Mucus MODERATE Urine Hemoglobin NEGATIVE Urine Glucose NEGATIVE Urine Total Protein NEGATIVE Bedside Glucose 151 177 White Blood Count 5.4 # Red Blood Count 3.78 L Hemoglobin 10.8 L Hematocrit 33.7 L Mean Corpuscular 89.2 Volume Mean Corpuscular 28.6 L Hemoglobin Mean Corpuscular 32.0 Hemoglobin Concent Red Cell 13.2 Distribution Width Platelet Count 298 Mean Platelet Volume 9.4 Immature 0.400 Granulocytes % Neutrophils % 49.4 Lymphocytes % 34.7 Monocytes % 8.2 Eosinophils % 6.7 Basophils % 0.6 Nucleated Red Blood 0.0 Cells % Immature 0.020 Granulocytes # Neutrophils # 2.7 Lymphocytes # 1.9 Monocytes # 0.4 Eosinophils # 0.4 Basophils # 0.0 Nucleated Red Blood 0.0 Cells # Sodium Level 140 Potassium Level 4.4 Chloride Level 108 Carbon Dioxide Level 27 Anion Gap 5 Blood Urea Nitrogen 33 H Creatinine 0.68 Est Glomerular Filtrat Rate mL/min Glucose Level 130 Calcium Level 8.8 Total Bilirubin 0.3 Direct Bilirubin 0.00 Indirect Bilirubin 0.3 Aspartate Amino 19 Transf (AST/SGOT) Alanine 15 Aminotransferase (AL T/SGPT) Alkaline Phosphatase 85 Total Protein 6.5 Albumin 3.2 L Globulin 3.30 H Albumin/Globulin 0.96 Ratio Test 05/16/18 08:25 Bedside Glucose 151 Subjective 24 Hr Interval Summary Respiratory: no complaints, pain, cough, pleuritic pain, shortness of breath, sputum, wheezing, other Cardiovascular: no complaints Genitourinary: dysuria, flank pain; No no complaints, No bleeding, No discharge, No hematuria, No other Musculoskeletal: no complaints, back pain, bone/joint pain, neck pain, restricted range of motion, swelling (lowr extremities), other Exam/Review of Systems Exam Vitals Vital Signs Date Temp Pulse Resp B/P (MAP) Pulse Ox O2 O2 Flow FiO2 Time Delivery Rate 05/16/18 70 145/75 08:37 (98) 05/16/18 98.0 18 97 Room Air 07:00 Intake and Output 05/15/18 05/15/18 05/16/18 1515:00 23:00 07:00 IntakeIntake Total 100 ml OutputOutput Total 200 ml BalanceBalance -100 ml Constitutional: alert, oriented Neck: supple Respiratory: clear to auscultation, normal air movement Cardiovascular: regular rate and rhythm Musculoskeletal: muscle weakness (neck), swelling (lower extemities 1 plus) Neurological: LEGAL ASSOCIATE II-XII intact Results Results 24hrs Laboratory Tests Test 05/15/18 17:00 05/15/18 17:30 05/15/18 20:04 05/16/18 06:40 Urine Color SHAYLA Urine Clarity CLOUDY A Urine pH 5.0 Urine Specific 1.027 [place] Urine Ketones NEGATIVE Urine Nitrite NEGATIVE Urine Bilirubin NEGATIVE Urine Urobilinogen NEGATIVE Urine Leukocyte 3+ H Esterase Urine Microscopic 7 H RBC Urine Microscopic 57 H WBC Urine Squamous MANY A Epithelial Cells Urine Calcium FEW A Oxalate Crystals Urine Bacteria FEW A Urine Mucus MODERATE Urine Hemoglobin NEGATIVE Urine Glucose NEGATIVE Urine Total Protein NEGATIVE Bedside Glucose 151 177 White Blood Count 5.4 # Red Blood Count 3.78 L Hemoglobin 10.8 L Hematocrit 33.7 L Mean Corpuscular 89.2 Volume Mean Corpuscular 28.6 L Hemoglobin Mean Corpuscular 32.0 Hemoglobin Concent Red Cell 13.2 Distribution Width Platelet Count 298 Mean Platelet Volume 9.4 Immature 0.400 Granulocytes % Neutrophils % 49.4 Lymphocytes % 34.7 Monocytes % 8.2 Eosinophils % 6.7 Basophils % 0.6 Nucleated Red Blood 0.0 Cells % Immature 0.020 Granulocytes # Neutrophils # 2.7 Lymphocytes # 1.9 Monocytes # 0.4 Eosinophils # 0.4 Basophils # 0.0 Nucleated Red Blood 0.0 Cells # Sodium Level 140 Potassium Level 4.4 Chloride Level 108 Carbon Dioxide Level 27 Anion Gap 5 Blood Urea Nitrogen 33 H Creatinine 0.68 Est Glomerular Filtrat Rate mL/min Glucose Level 130 Calcium Level 8.8 Total Bilirubin 0.3 Direct Bilirubin 0.00 Indirect Bilirubin 0.3 Aspartate Amino 19 Transf (AST/SGOT) Alanine 15 Aminotransferase (AL T/SGPT) Alkaline Phosphatase 85 Total Protein 6.5 Albumin 3.2 L Globulin 3.30 H Albumin/Globulin 0.96 Ratio Test 05/16/18 08:25 Bedside Glucose 151 Medications Medication Current Medications Miscellaneous Information (Pending Santyl Order For Wound Care) This patient luna... PRN PRN XX WOUND CARE; Start 05/15/18 at 16:00 Docusate Sodium (Colace) 100 mg BID PO Last administered on 05/16/18at 08:54; Admin Dose 100 MG; Start 05/15/18 at 21:00 Senna (Senokot) 1 tab QHS PO ; Start 05/15/18 at 21:00 Bisacodyl (Dulcolax Supp) 10 mg DAILY PRN [place] CONSTIPATION; Start 05/15/18 at 16:30 Magnesium Hydroxide (Milk Of Mag) 30 ml BID PRN PO CONSTIPATION; Start 05/15/18 at 16:30 Lactulose (Enulose) 20 gm DAILY PRN PO CONSTIPATION; Start 05/15/18 at 16:30 Aspirin (Halfprin) 81 mg DAILY PO Last administered on 05/16/18 08:54; Admin Dose 81 MG; Start 05/16/18 at 09:00 Cholecalciferol (Vitamin D) 1,000 unit DAILY PO Last administered on 05/16/18 08:52; Admin Dose 1,000 UNIT; Start 05/16/18 at 09:00 Diagnostic Test (Pha) (Accu-Chek) 1 ea 02 XX ; Start 05/16/18 at 02:00 Acetaminophen (Tylenol Tab) 650 mg Q6H PRN PO MILD PAIN(1-3)OR ELEVATED TEMP; Start 05/15/18 at 19:30 Albuterol/ Ipratropium (Duoneb) 3 ml Q6H RESP THERAPY HHN Last administered on 05/16/18 07:45; Admin Dose 3 ML; Start 05/15/18 at 20:00 Cyanocobalamin (Vitamin B12) 1,000 mcg DAILY PO Last administered on 05/16/18 08:54; Admin Dose 1,000 MCG; Start 05/16/18 at 09:00 Famotidine (Pepcid Iv) 20 mg DAILY IV ; Start 05/16/18 at 09:00 Folic Acid (Folic Acid) 0.8 mg DAILY PO Last administered on 05/16/18 08:53; Admin Dose 0.8 MG; Start 05/16/18 at 09:00 Furosemide (Lasix) 20 mg DAILY PO Last administered on 05/16/18 08:54; Admin Dose 20 MG; Start 05/16/18 at 09:00 Insulin Aspart (Novolog Insulin Pen) NOVOLOG *MILD* ALGORITHM WITH MEALS BEDTIME SC Last administered on 05/16/18 08:29; Admin Dose 1 UNIT; Start 05/15 at 21:00 Levothyroxine Sodium (Synthroid) 88 mcg QHS PO ; Start 05/16/18 at 21:00 Methocarbamol (Robaxin) 500 mg Q8 PO Last administered on 05/16/18at 05:49; Admin Dose 500 MG; Start 05/15/18 at 22:00 Morphine Sulfate (morphine) 1 mg Q3H PRN IV SEVERE PAIN LEVEL 7-10; Start 05/15/18 at 19:30 Multivitamins Therapeutic (Theragran) 1 tab DAILY PO Last administered on 05/16/18at 08:54; Admin Dose 1 TAB; Start 05/16/18 at 09:00 Ondansetron HCl (Zofran Inj) 4 mg Q6H PRN IV NAUSEA AND/OR VOMITING; Start 05/15/18 at 19:30 Tramadol HCl (Ultram) 50 mg Q6 PO ; Start 05/15/18 at 19:30 Acetaminophen/ Hydrocodone Bitart (Lortab Liq) 5 ml Q4H PRN PO MODERATE PAIN LEVEL 4-6; Start 05/15/18 at 20:00 Zolpidem Tartrate (Ambien) 5 mg HS PRN PO INSOMNIA; Start 05/15/18 at 20:00 Miscellaneous Information 1 ea NOTE XX ; Start 05/15/18 at 20:00 Glucose (Glutose) 15 gm Q15M PRN PO DECREASED GLUCOSE; Start 05/15/18 at 20:00 Glucose (Glutose) 22.5 gm Q15M PRN PO DECREASED GLUCOSE; Start 05/15/18 at 20: 00 Dextrose (D50w Syringe) 25 ml Q15M PRN IV DECREASED GLUCOSE; Start 05/15/18 at 20:00 Dextrose (D50w Syringe) 50 ml Q15M PRN IV DECREASED GLUCOSE; Start 05/15/18 at 20:00 Glucagon (Glucagen) 1 mg Q15M PRN IM DECREASED GLUCOSE; Start 05/15/18 at 20:00 Glucose (Glutose) 15 gm Q15M PRN BUCCAL DECREASED GLUCOSE; Start 05/15/18 at 20:00 Enoxaparin Sodium (Lovenox) 40 mg DAILY SC Last administered on 05/16/18at 09:00; Admin Dose 40 MG; Start 05/16/18 at 09:00 Losartan Potassium (Cozaar) 100 mg DAILY PO Last administered on 05/16/18at 08:57; Admin Dose 100 MG; Start 05/16/18 at 09:00 Hydrochlorothiazide (Hydrochlorothiazide) 25 mg DAILY PO Last administered on 05/16/18at 08:53; Admin Dose 25 MG; Start 05/16/18 at 09:00 SABINO SHINE May 16, 2018 09:58
--- NOTE | 2018-05-16 10:14 | CONS ---
DATE OF ADMISSION: 05/15/2018 DATE OF CONSULTATION: 05/16/2018 TYPE OF CONSULTATION: Rehabilitation post-admission physician evaluation. 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 ACTIVE COMORBIDITIES: 1. Diabetes mellitus type 2. 2. Hypertension. 3. Obesity. 4. Bronchitis. 5. Fibromyalgia. 6. Hypothyroidism. 7. Hyperlipidemia. 8. Sleep apnea. 9. Depression. 10. Status post dehydration. 11. Impairments in self-care and mobility. HISTORY OF PRESENT ILLNESS: The patient is a 73-year-old female who was initially admitted with uppe r back pain noted 4 days after bending over to turkey picker her dog. Upon further questioning, she does r eport some lower extremity numbness in addition to occasional right lower extremity buckling. The pa don reports she was unable to lift her arms and was admitted to [facility] for fu rther care and workup. Imaging studies did include cervical and thoracic MRI, which did demonstrate syringohydromyelia at T6-T7 and T7-T8 in addition to cervicothoracic spinal stenosis. The patient wa s seen by neurosurgery and felt not to require neurosurgical intervention at this time. The patient was also treated for dehydration in addition to reporting she had a recent bronchitis. FUNCTIONAL HISTORY: Prior to recent events, she was independent in self-care tasks and mobility. Cu rrently, she requires minimal assist. I have reviewed the preadmission screen and the patient's current functional status is consistent wit h the preadmission screen. FAMILY AND SOCIAL HISTORY: The patient reports living at home alone and hopes to return there upon d ischarge. PAST MEDICAL HISTORY: 1. Diabetes mellitus. 2. Hypertension. 3. Hyperlipidemia. 4. Sleep apnea. 5. Fibromyalgia. 6. Depression. 7. Hypothyroidism. 8. History of sciatica. 9. Carpal tunnel syndrome. 10. Spondylolisthesis. 11. Umbilical hernia. 12. Sinusitis. 13. Osteoarthritis. 14. History of right hip surgery. CURRENT MEDICATIONS: 1. Aspirin 81 mg p.o. daily. 2. Vitamin D p.o. daily. 3. Insulin sliding scale. 4. Pepcid 20 mg daily. 5. Folic acid 0.8 mg p.o. daily. 6. Lasix 20 mg p.o. daily. 7. Toradol p.r.n. 8. Synthroid 88 mcg p.o. daily. 9. Robaxin 500 mg p.o. q.8 hours. 10. Multivitamin one tab p.o. daily. 11. Ultram p.r.n. 12. Ambien p.r.n. ALLERGIES: VICODIN. PHYSICAL EXAMINATION: VITAL SIGNS: The patient is currently afebrile with stable vital signs. HEENT: Extraocular motions are intact. Oropharynx is clear. NECK: Supple. LUNGS: Clear anteriorly. CARDIAC: S1, S2. ABDOMEN: Soft, nontender, positive bowel sounds. NEUROLOGIC: She is awake and alert and oriented x3. She can follow simple 1-step commands. Cranial nerves are grossly intact. She has antigravity strength in bilateral upper extremity and lower extr emity. She does have some impaired dynamic balance. PLAN: The patient has been admitted for comprehensive interdisciplinary acute rehab and is anticipat ed to tolerate 3 hours of daily therapy in divided doses for at least 5/7 days a week. The treatment plan will include: 1. Physical therapy to focus on bed mobility, transfers, and household ambulation with the goal of h aving the patient reach a supervised to modified independent level. 2. Occupational therapy to focus on hygiene, grooming, dressing, bathing, and toileting activities w ith goal of having the patient reach a supervised to modified independent level. 3. Rehabilitation nursing for carryover therapeutic interventions, the goal of continent of bowel an d bladder, and the goal of pain adequately managed on oral medications. REHABILITATION BARRIER: Pain. INTERVENTION FOR BARRIER: Interdisciplinary approach. ESTIMATED LENGTH OF STAY: 10 days. DISPOSITION GOAL: Home. I acknowledge that I performed a full physical examination on this patient within 24 hours of admissi on to the rehabilitation unit. I believe the patient is a good candidate for comprehensive interdisc iplinary rehab care and is anticipated to make reasonable goals in a reasonable period of time as out lined above. Dictated By: LINWOOD ZAVALA/NTS Conf#: [id number] DID#: [id number] CC: NINFA MUELLER; LINWOOD COPE MD;*EndCC*
[2018-05-16] MEDS: AMLODIPINE 5 MG TAB PO SCH (11:58)
[2018-05-16] MEDS: CEFTRIAXONE 1 GM/50 ML (PMX) 50 ML IVPB SCH (11:59)
[2018-05-16 14:00] VITALS: BP 135/65; PULSE 70; RESP 18
[2018-05-16 19:23] VITALS: BP 126/70; PULSE 77; RESP 18
[2018-05-16] MEDS: LEVOTHYROXINE 88 MCG TAB PO SCH (20:21)
[2018-05-16] MEDS: SENNA TAB PO SCH (21:00)
[2018-05-17] MEDS: ALBUTEROL/IPRATROPIUM (NEB) 3 ML AMP HHN SCH ×4 (01:10→20:02)
[2018-05-17] MEDS: ACCU-CHEK XX SCH (02:00)
[2018-05-17 05:00] VITALS: BP 152/65; PULSE 72; RESP 19
[2018-05-17] MEDS: traMADol 50 MG TAB PO SCH ×4 (06:00→18:00)
[2018-05-17] MEDS: METHOCARBAMOL 500 MG TAB PO SCH ×3 (06:03→20:11)
[2018-05-17 07:00] VITALS: BP 168/75; PULSE 67; RESP 18
[2018-05-17] MEDS: INSULIN ASPART [NOVOLOG] 3 ML PEN SC SCH ×4 (07:52→20:20)
[2018-05-17] MEDS: HYDROCHLOROTHIAZIDE 25 MG TAB PO SCH (08:42)
[2018-05-17] MEDS: CYANOCOBALAMIN 500 MCG TAB PO SCH (08:42)
[2018-05-17] MEDS: MULTIVITAMINS THERAPEUTIC TAB PO SCH (08:43)
[2018-05-17] MEDS: ASPIRIN (EC) 81 MG TAB PO SCH (08:43)
[2018-05-17] MEDS: FUROSEMIDE 20 MG TAB PO SCH (08:43)
[2018-05-17] MEDS: DOCUSATE SODIUM 100 MG CAP PO SCH ×2 (08:43→20:22)
[2018-05-17] MEDS: CHOLECALCIFEROL 1,000 UNIT TAB PO SCH (08:43)
[2018-05-17] MEDS: FOLIC ACID 0.4 MG TAB PO SCH (08:44)
[2018-05-17] MEDS: LOSARTAN 50 MG TAB PO SCH (08:45)
[2018-05-17] MEDS: AMLODIPINE 5 MG TAB PO SCH (08:45)
[2018-05-17] MEDS: ENOXAPARIN 40 MG/0.4 ML SYG SC SCH (08:46)
[2018-05-17] MEDS: FAMOTIDINE 20 MG INJ IV SCH ×2 (08:47→08:58)
[2018-05-17] MEDS: CEFTRIAXONE 1 GM/50 ML (PMX) 50 ML IVPB SCH (11:57)
[2018-05-17 14:00] VITALS: BP 132/62; PULSE 78; RESP 18
--- NOTE | 2018-05-17 17:08 | PN ---
Date/Time of Note Date/Time of Note DATE: 05/17/18 TIME: 17:06 Assessment/Plan VTE Prophylaxis Risk score (from Ns)>0 risk: 4 SCD applied (from [facility] [place], [place]): Yes SCD contraindicated: other Pharmacological prophylaxis: other Pharm contraindication: other Lines/Catheters IV Catheter Type (from [facility]): Saline Lock Assessment/Plan Hospital Course 1. Acute onset of upper back, status post picking up her dog. CT C spine and T spine There is multilevel degenerative changes resulting in moderate central canal stenosis at the C4-5 , C5-6 and C6-7 levels. Mild bilateral C6-7 neural foraminal narrowing is seen . thoracic spine demonstrates multilevel degenerative changes resulting in multilevel neural foraminal narrowing, severe at the left T4-5 level with moderate to severe neural foraminal narrowing at the right T3-4 level.MRI shows: Multilevel disc desiccation at the C2-3 through T2-3 levels with severe disc space height loss and degenerative endplate changes at C6-7. 2. Dehydration with elevated BUN to creatinine ratio. 3. Diabetes. 4. Bronchitis.hx 5. Hypertension. 6. Sciatica. 7. Osteoarthritis. 8. History of fibromyalgia. 9. History of spondylolisthesis. 10. Hypothyroidism. 11. Hypercholesterolemia. 12. Depression. 13. Obstructive sleep apnea. 14. UTI plan ck llabs Result Diagram: 05/17/18 0654 05/17/18 0654 Results 24hrs Laboratory Tests Test 05/16/18 17:32 05/16/18 20:20 05/17/18 06:54 05/17/18 07:31 Bedside Glucose 167 153 145 White Blood Count 5.7 Red Blood Count 4.02 L Hemoglobin 11.2 L Hematocrit 35.4 L Mean Corpuscular 88.1 Volume Mean Corpuscular 27.9 L Hemoglobin Mean Corpuscular 31.6 L Hemoglobin Concent Red Cell 13.1 Distribution Width Platelet Count 340 Mean Platelet Volume 9.4 Immature 0.400 Granulocytes % Neutrophils % 54.0 Lymphocytes % 32.2 Monocytes % 8.1 Eosinophils % 4.9 Basophils % 0.4 Nucleated Red Blood 0.0 Cells % Immature 0.020 Granulocytes # Neutrophils # 3.1 Lymphocytes # 1.8 Monocytes # 0.5 Eosinophils # 0.3 Basophils # 0.0 Nucleated Red Blood 0.0 Cells # Sodium Level 141 Potassium Level 4.3 Chloride Level 108 Carbon Dioxide Level 26 Anion Gap 7 Blood Urea Nitrogen 23 H Creatinine 0.61 Est Glomerular Filtrat Rate mL/min Glucose Level 135 Calcium Level 9.1 Thyroid Stimulating 1.640 Hormone (TSH) Test 05/17/18 11:54 Bedside Glucose 148 Subjective 24 Hr Interval Summary Subjective hx not possible: pt critical (pain better), other (weakness +) Exam/Review of Systems Exam Vitals Vital Signs Date Temp Pulse Resp B/P (MAP) Pulse Ox O2 O2 Flow FiO2 Time Delivery Rate 05/17/18 97.7 78 18 132/62 94 Room Air 14:00 (85) 05/17/18 21 13:36 Intake and Output 05/16/18 05/16/18 05/17/18 1515:00 23:00 07:00 IntakeIntake Total 500 ml 1200 ml 200 ml OutputOutput Total 760 ml BalanceBalance 500 ml 440 ml 200 ml Neck: supple Respiratory: clear to auscultation Cardiovascular: regular rate and rhythm Gastrointestinal: soft, bowel sounds (+) Extremities: No edema Results Results 24hrs Laboratory Tests Test 05/16/18 17:32 05/16/18 20:20 05/17/18 06:54 05/17/18 07:31 Bedside Glucose 167 153 145 White Blood Count 5.7 Red Blood Count 4.02 L Hemoglobin 11.2 L Hematocrit 35.4 L Mean Corpuscular 88.1 Volume Mean Corpuscular 27.9 L Hemoglobin Mean Corpuscular 31.6 L Hemoglobin Concent Red Cell 13.1 Distribution Width Platelet Count 340 Mean Platelet Volume 9.4 Immature 0.400 Granulocytes % Neutrophils % 54.0 Lymphocytes % 32.2 Monocytes % 8.1 Eosinophils % 4.9 Basophils % 0.4 Nucleated Red Blood 0.0 Cells % Immature 0.020 Granulocytes # Neutrophils # 3.1 Lymphocytes # 1.8 Monocytes # 0.5 Eosinophils # 0.3 Basophils # 0.0 Nucleated Red Blood 0.0 Cells # Sodium Level 141 Potassium Level 4.3 Chloride Level 108 Carbon Dioxide Level 26 Anion Gap 7 Blood Urea Nitrogen 23 H Creatinine 0.61 Est Glomerular Filtrat Rate mL/min Glucose Level 135 Calcium Level 9.1 Thyroid Stimulating 1.640 Hormone (TSH) Test 05/17/18 11:54 Bedside Glucose 148 Medications Medication Current Medications Misc[facility] This patient luna... PRN PRN XX WOUND CARE; Start 05/15/18 at 16:00 Docusate Sodium (Colace) 100 mg BID PO Last administered on 05/17/18 08:43; Admin Dose 100 MG; Start 05/15/18 at 21:00 Senna (Senokot) 1 tab QHS PO ; Start 05/15/18 at 21:00 Bisacodyl (Dulcolax Supp) 10 mg DAILY PRN [place] CONSTIPATION; Start 05/15/18 at 16:30 Magnesium Hydroxide (Milk Of Mag) 30 ml BID PRN PO CONSTIPATION; Start 05/15/18 at 16:30 Lactulose (Enulose) 20 gm DAILY PRN PO CONSTIPATION; Start 05/15/18 at 16:30 Aspirin (Halfprin) 81 mg DAILY PO Last administered on 05/17/18 08:43; Admin Dose 81 MG; Start 05/16/18 at 09:00 Cholecalciferol (Vitamin D) 1,000 unit DAILY PO Last administered on 05/17/18 08:43; Admin Dose 1,000 UNIT; Start 05/16/18 at 09:00 Diagnostic Test (Pha) (Accu-Chek) 1 ea 02 XX ; Start 05/16/18 at 02:00 Acetaminophen (Tylenol Tab) 650 mg Q6H PRN PO MILD PAIN(1-3)OR ELEVATED TEMP; Start 05/15/18 at 19:30 Albuterol/ Ipratropium (Duoneb) 3 ml Q6H RESP THERAPY HHN Last administered on 05/17/18at 13:34; Admin Dose 3 ML; Start 05/15/18 at 20:00 Cyanocobalamin (Vitamin B12) 1,000 mcg DAILY PO Last administered on 05/17/18 08:42; Admin Dose 1,000 MCG; Start 05/16/18 at 09:00 Folic Acid (Folic Acid) 0.8 mg DAILY PO Last administered on 05/17/18 08:44; Admin Dose 0.8 MG; Start 05/16/18 at 09:00 Furosemide (Lasix) 20 mg DAILY PO Last administered on 05/17/18 08:43; Admin Dose 20 MG; Start 05/16/18 at 09:00 Insulin Aspart (Novolog Insulin Pen) NOVOLOG *MILD* ALGORITHM WITH MEALS BEDTIME SC Last administered on 05/17/18at 11:58; Admin Dose 1 UNIT; Start 05/15 at 21:00 Levothyroxine Sodium (Synthroid) 88 mcg QHS PO Last administered on 05/16/18at 20:21; Admin Dose 88 MCG; Start 05/16/18 at 21:00 Methocarbamol (Robaxin) 500 mg Q8 PO Last administered on 05/17/18 08:43; Admin Dose 500 MG; Start 05/15/18 at 22:00 Morphine Sulfate (morphine) 1 mg Q3H PRN IV SEVERE PAIN LEVEL 7-10; Start 05/15/18 at 19:30 Multivitamins Therapeutic (Theragran) 1 tab DAILY PO Last administered on 05/17/18 08:43; Admin Dose 1 TAB; Start 05/16/18 at 09:00 Ondansetron HCl (Zofran Inj) 4 mg Q6H PRN IV NAUSEA AND/OR VOMITING; Start 05/15/18 at 19:30 Tramadol HCl (Ultram) 50 mg Q6 PO Last administered on 05/16/18at 14:05; Admin Dose 50 MG; Start 05/15/18 at 19:30 Acetaminophen/ Hydrocodone Bitart (Lortab Liq) 5 ml Q4H PRN PO MODERATE PAIN LEVEL 4-6; Start 05/15/18 at 20:00 Zolpidem Tartrate (Ambien) 5 mg HS PRN PO INSOMNIA; Start 05/15/18 at 20:00 Miscellaneous Information 1 ea NOTE XX ; Start 05/15/18 at 20:00 Glucose (Glutose) 15 gm Q15M PRN PO DECREASED GLUCOSE; Start 05/15/18 at 20:00 Glucose (Glutose) 22.5 gm Q15M PRN PO DECREASED GLUCOSE; Start 05/15/18 at 20:00 Dextrose (D50w Syringe) 25 ml Q15M PRN IV DECREASED GLUCOSE; Start 05/15/18 at 20:00 Dextrose (D50w Syringe) 50 ml Q15M PRN IV DECREASED GLUCOSE; Start 05/15/18 at 20:00 Glucagon (Glucagen) 1 mg Q15M PRN IM DECREASED GLUCOSE; Start 05/15/18 at 20:00 Glucose (Glutose) 15 gm Q15M PRN BUCCAL DECREASED GLUCOSE; Start 05/15/18 at 20:00 Enoxaparin Sodium (Lovenox) 40 mg DAILY SC Last administered on 05/17/18 08:46; Admin Dose 40 MG; Start 05/16/18 at 09:00 Losartan Potassium (Cozaar) 100 mg DAILY PO Last administered on 05/17/18 08:45; Admin Dose 100 MG; Start 05/16/18 at 09:00 Hydrochlorothiazide (Hydrochlorothiazide) 25 mg DAILY PO Last administered on 05/17/18 08:42; Admin Dose 25 MG; Start 05/16/18 at 09:00 Ceftriaxone Sodium 50 ml @ 100 mls/hr Q24H IVPB Last administered on 05/17/18at 11:57; Admin Dose 100 MLS/HR; Start 05/16/18 at 11:00 Amlodipine Besylate (Norvasc) 5 mg DAILY PO Last administered on 05/17/18 08:45; Admin Dose 5 MG; Start 05/16/18 at 10:00 Famotidine (Pepcid) 20 mg DAILY PO ; Start 05/18/18 at 09:00 DRAKE HODGES MD May 17, 2018 17:08
[2018-05-17] MEDS: LEVOTHYROXINE 88 MCG TAB PO SCH (20:11)
[2018-05-17 20:17] VITALS: BP 117/59; PULSE 72; RESP 18
[2018-05-17] MEDS: SENNA TAB PO SCH (20:22)
[2018-05-18] MEDS: ALBUTEROL/IPRATROPIUM (NEB) 3 ML AMP HHN SCH ×4 (02:00→19:25)
[2018-05-18] MEDS: ACCU-CHEK XX SCH (02:00)
[2018-05-18 02:23] VITALS: BP 135/67; PULSE 84; RESP 18
[2018-05-18] MEDS: METHOCARBAMOL 500 MG TAB PO SCH (06:00)
[2018-05-18] MEDS: traMADol 50 MG TAB PO SCH ×2 (06:00)
[2018-05-18 07:00] VITALS: BP 159/68; PULSE 66; RESP 18
[2018-05-18] MEDS ORDERED: DOCUSATE SODIUM 100 MG CAP PO PRN (07:00)
[2018-05-18] MEDS ORDERED: traMADol 50 MG TAB PO PRN ×2 (07:00→07:30)
[2018-05-18] MEDS: INSULIN ASPART [NOVOLOG] 3 ML PEN SC SCH ×4 (07:35→20:19)
[2018-05-18] MEDS: FAMOTIDINE 20 MG TAB PO SCH ×2 (08:26→08:54)
[2018-05-18] MEDS: FOLIC ACID 0.4 MG TAB PO SCH (08:49)
[2018-05-18] MEDS: CYANOCOBALAMIN 500 MCG TAB PO SCH (08:50)
[2018-05-18] MEDS: ASPIRIN (EC) 81 MG TAB PO SCH (08:51)
[2018-05-18] MEDS: LOSARTAN 50 MG TAB PO SCH (08:51)
[2018-05-18] MEDS: MULTIVITAMINS THERAPEUTIC TAB PO SCH (08:52)
[2018-05-18] MEDS: FUROSEMIDE 20 MG TAB PO SCH (08:52)
[2018-05-18] MEDS: HYDROCHLOROTHIAZIDE 25 MG TAB PO SCH (08:52)
[2018-05-18] MEDS: AMLODIPINE 5 MG TAB PO SCH (08:52)
[2018-05-18] MEDS: CHOLECALCIFEROL 1,000 UNIT TAB PO SCH (08:52)
[2018-05-18] MEDS: ENOXAPARIN 40 MG/0.4 ML SYG SC SCH (08:53)
[2018-05-18] MEDS: CEFTRIAXONE 1 GM/50 ML (PMX) 50 ML IVPB SCH (11:05)
--- NOTE | 2018-05-18 12:09 | PN ---
Date/Time of Note Date/Time of Note DATE: 05/18/18 TIME: 12:06 Assessment/Plan VTE Prophylaxis Risk score (from Nsg)>0 risk: 4 SCD applied (from Nsg): Yes Pharmacological prophylaxis: NA/contraindicated Pharm contraindication: low risk/ambulating Lines/Catheters IV Catheter Type (from Nrsg): Saline Lock Assessment/Plan Assessment/Plan 1. Acute onset of upper back, status post picking up her dog. CT C spine and T spine There is multilevel degenerative changes resulting in moderate central canal stenosis at the C4-5 , C5-6 and C6-7 levels. Mild bilateral C6-7 neural foraminal narrowing is seen . thoracic spine demonstrates multilevel degenerative changes resulting in multilevel neural foraminal narrowing, severe at the left T4-5 level with moderate to severe neural foraminal narrowing at the right T3-4 level.MRI shows: Multilevel disc desiccation at the C2-3 through T2-3 levels with severe disc space height loss and degenerative endplate changes at C6-7. 2. Dehydration with elevated BUN to creatinine ratio. 3. Diabetes. 4. Bronchitis.hx 5. Hypertension. 6. Sciatica. 7. Osteoarthritis. 8. History of fibromyalgia. 9. History of spondylolisthesis. 10. Hypothyroidism. 11. Hypercholesterolemia. 12. Depression. 13. Obstructive sleep apnea. 14. UTI with Enterococcus Plan -dC IV Rocephin start amoxacillin which is sensitive to enterococcus for a 7-day course -PT OT -cw with losartan/hydrochlorothiazide - pain control -cw with home medicines DC planning Result Diagram: 05/17/18 0654 05/17/18 0654 Results 24hrs Laboratory Tests Test 05/17/18 17:26 05/17/18 20:12 05/18/18 08:05 Bedside Glucose 144 187 150 Subjective 24 Hr Interval Summary Free Text/Dictation Feels she is getting better. She wants to go home Exam/Review of Systems Exam Vitals Vital Signs Date Temp Pulse Resp B/P (MAP) Pulse Ox O2 O2 Flow FiO2 Time Delivery Rate 05/18/18 61 18 96 21 07:47 05/18/18 97.6 159/68 Room Air 07:00 (98) Intake and Output 05/17/18 05/17/18 05/18/18 1515:00 23:00 07:00 IntakeIntake Total 1600 ml 550 ml OutputOutput Total 1000 ml BalanceBalance 600 ml 550 ml Exam Neck: supple Respiratory: clear to auscultation Cardiovascular: regular rate and rhythm Gastrointestinal: soft, bowel sounds (+) Extremities: No edema Results Results 24hrs Laboratory Tests Test 05/17/18 17:26 05/17/18 20:12 05/18/18 08:05 Bedside Glucose 144 187 150 Medications Medication Current Medications Miscellaneous Information (Pending [facility] Order For Wound Care) This patient luna... PRN PRN XX WOUND CARE; Start 05/15/18 at 16:00 Senna (Senokot) 1 tab QHS PO ; Start 05/15/18 at 21:00 Bisacodyl (Dulcolax Supp) 10 mg DAILY PRN [place] CONSTIPATION; Start 05/15/18 at 16:30 Magnesium Hydroxide (Milk Of Mag) 30 ml BID PRN PO CONSTIPATION; Start 05/15/18 at 16:30 Lactulose (Enulose) 20 gm DAILY PRN PO CONSTIPATION; Start 05/15/18 at 16:30 Aspirin (Halfprin) 81 mg DAILY PO Last administered on 05/18/18at 08:51; Admin Dose 81 MG; Start 05/16/18 at 09:00 Cholecalciferol (Vitamin D) 1,000 unit DAILY PO Last administered on 05/18/18at 08:52; Admin Dose 1,000 UNIT; Start 05/16/18 at 09:00 Diagnostic Test (Pha) (Accu-Chek) 1 ea 02 XX ; Start 05/16/18 at 02:00 Acetaminophen (Tylenol Tab) 650 mg Q6H PRN PO MILD PAIN(1-3)OR ELEVATED TEMP; Start 05/15/18 at 19:30 Albuterol/ Ipratropium (Duoneb) 3 ml Q6H RESP THERAPY HHN Last administered on 05/18/18at 07:47; Admin Dose 3 ML; Start 05/15/18 at 20:00 Cyanocobalamin (Vitamin B12) 1,000 mcg DAILY PO Last administered on 05/18/18at 08:50; Admin Dose 1,000 MCG; Start 05/16/18 at 09:00 Folic Acid (Folic Acid) 0.8 mg DAILY PO Last administered on 05/18/18at 08:49; Admin Dose 0.8 MG; Start 05/16/18 at 09:00 Furosemide (Lasix) 20 mg DAILY PO Last administered on 05/18/18at 08:52; Admin Dose 20 MG; Start 05/16/18 at 09:00 Insulin Aspart (Novolog Insulin Pen) NOVOLOG *MILD* ALGORITHM WITH MEALS BEDTIME SC Last administered on 05/17/18at 11:58; Admin Dose 1 UNIT; Start 05/15/18 at 21:00 Levothyroxine Sodium (Synthroid) 88 mcg QHS PO Last administered on 05/17/18at 20:11; Admin Dose 88 MCG; Start 05/16/18 at 21:00 Morphine Sulfate (morphine) 1 mg Q3H PRN IV SEVERE PAIN LEVEL 7-10; Start 05/15/18 at 19:30 Multivitamins Therapeutic (Theragran) 1 tab DAILY PO Last administered on 05/18/18at 08:52; Admin Dose 1 TAB; Start 05/16/18 at 09:00 Ondansetron HCl (Zofran Inj) 4 mg Q6H PRN IV NAUSEA AND/OR VOMITING; Start 05/15/18 at 19:30 Acetaminophen/ Hydrocodone Bitart (Lortab Liq) 5 ml Q4H PRN PO MODERATE PAIN LEVEL 4-6; Start 05/15/18 at 20:00 Zolpidem Tartrate (Ambien) 5 mg HS PRN PO INSOMNIA; Start 05/15/18 at 20:00 Miscellaneous Information 1 ea NOTE XX ; Start 05/15/18 at 20:00 Glucose (Glutose) 15 gm Q15M PRN PO DECREASED GLUCOSE; Start 05/15/18 at 20:00 Glucose (Glutose) 22.5 gm Q15M PRN PO DECREASED GLUCOSE; Start 05/15/18 at 20:00 Dextrose (D50w Syringe) 25 ml Q15M PRN IV DECREASED GLUCOSE; Start 05/15/18 at 20:00 Dextrose (D50w Syringe) 50 ml Q15M PRN IV DECREASED GLUCOSE; Start 05/15/18 at 20:00 Glucagon (Glucagen) 1 mg Q15M PRN IM DECREASED GLUCOSE; Start 05/15/18 at 20:00 Glucose (Glutose) 15 gm Q15M PRN BUCCAL DECREASED GLUCOSE; Start 05/15/18 at 20:00 Enoxaparin Sodium (Lovenox) 40 mg DAILY SC Last administered on 05/18/18 08:53; Admin Dose 40 MG; Start 05/16/18 at 09:00 Losartan Potassium (Cozaar) 100 mg DAILY PO Last administered on 05/18/18 08:51; Admin Dose 100 MG; Start 05/16/18 at 09:00 Hydrochlorothiazide (Hydrochlorothiazide) 25 mg DAILY PO Last administered on 05/18/18 08:52; Admin Dose 25 MG; Start 05/16/18 at 09:00 Ceftriaxone Sodium 50 ml @ 100 mls/hr Q24H IVPB Last administered on 05/18/18at 11:05; Admin Dose 100 MLS/HR; Start 05/16/18 at 11:00 Amlodipine Besylate (Norvasc) 5 mg DAILY PO Last administered on 05/18/18 08:52; Admin Dose 5 MG; Start 05/16/18 at 10:00 Famotidine (Pepcid) 20 mg DAILY PO Last administered on 05/18/18 08:54; Admin Dose 20 MG; Start 05/18/18 at 09:00 Docusate Sodium (Colace) 100 mg BID PRN PO CONSTIPATION; Start 05/18/18 at 07:00 Tramadol HCl (Ultram) 50 mg Q6 PRN PO PAIN LEVEL 6-10; Start 05/18/18 at 07:30 Methocarbamol (Robaxin) 500 mg Q8 PRN PO MUSCLE SPASMS; Start 05/18/18 at 14:00 NINFA MUELLER MD May 18, 2018 12:09
--- NOTE | 2018-05-18 12:43 | PN ---
Date/Time of Note Date/Time of Note DATE: 05/18/18 TIME: 12:42 Objective Vital Signs Date Temp Pulse Resp B/P (MAP) Pulse Ox O2 O2 Flow FiO2 Time Delivery Rate 05/18/18 61 18 96 21 07:47 05/18/18 97.6 159/68 Room Air 07:00 (98) Intake and Output 05/17/18 05/17/18 05/18/18 1515:00 23:00 07:00 IntakeIntake Total 1600 ml 550 ml OutputOutput Total 1000 ml BalanceBalance 600 ml 550 ml Exam INTERDISCIPLINARY TEAM CONFERENCE Physical Exam: Pulm- cta Abd-soft BOWEL- Cont BLADDER-Cont SKIN- intact OT- DRESSING-min BATHING-min TOILETING-min PT- BED MOBILITY-sba TRANSFERS-cga AMBULATION-cga 150 feet A/P- Interdisciplinary team conference held today. Please see interdisciplinary sheet. Working toward d.c. on 05/20 with post discharge follow up of physical therapy, occupational therapy. Results/Medications Result Diagram: 05/17/18 0654 05/17/18 0654 Results 24 hrs Laboratory Tests Test 05/17/18 17:26 05/17/18 20:12 05/18/18 08:05 05/18/18 12:05 Bedside Glucose 144 187 150 158 Medications Current Medications Miscellaneous Information (Pending [facility] Order For Wound Care) This patient luna... PRN PRN XX WOUND CARE; Start 05/15/18 at 16:00 Senna (Senokot) 1 tab QHS PO ; Start 05/15/18 at 21:00 Bisacodyl (Dulcolax Supp) 10 mg DAILY PRN [place] CONSTIPATION; Start 05/15/18 at 16:30 Magnesium Hydroxide (Milk Of Mag) 30 ml BID PRN PO CONSTIPATION; Start 05/15/18 at 16:30 Lactulose (Enulose) 20 gm DAILY PRN PO CONSTIPATION; Start 05/15/18 at 16:30 Aspirin (Halfprin) 81 mg DAILY PO Last administered on 05/18/18at 08:51; Admin Do se 81 MG; Start 05/16/18 at 09:00 Cholecalciferol (Vitamin D) 1,000 unit DAILY PO Last administered on 05/18/18at 08:52; Admin Dose 1,000 UNIT; Start 05/16/18 at 09:00 Diagnostic Test (Pha) (Accu-Chek) 1 ea 02 XX ; Start 05/16/18 at 02:00 Acetaminophen (Tylenol Tab) 650 mg Q6H PRN PO MILD PAIN(1-3)OR ELEVATED TEMP; Start 05/15/18 at 19:30 Albuterol/ Ipratropium (Duoneb) 3 ml Q6H RESP THERAPY HHN Last administered on 05/18/18 07:47; Admin Dose 3 ML; Start 05/15/18 at 20:00 Cyanocobalamin (Vitamin B12) 1,000 mcg DAILY PO Last administered on 05/18/18 08:50; Admin Dose 1,000 MCG; Start 05/16/18 at 09:00 Folic Acid (Folic Acid) 0.8 mg DAILY PO Last administered on 05/18/18 08:49; Admin Dose 0.8 MG; Start 05/16/18 at 09:00 Furosemide (Lasix) 20 mg DAILY PO Last administered on 05/18/18 08:52; Admin Dose 20 MG; Start 05/16/18 at 09:00 Insulin Aspart (Novolog Insulin Pen) NOVOLOG *MILD* ALGORITHM WITH MEALS BEDTIME SC Last administered on 05/17/18 11:58; Admin Dose 1 UNIT; Start 05/15 at 21:00 Levothyroxine Sodium (Synthroid) 88 mcg QHS PO Last administered on 05/17/18 20:11; Admin Dose 88 MCG; Start 05/16/18 at 21:00 Morphine Sulfate (morphine) 1 mg Q3H PRN IV SEVERE PAIN LEVEL 7-10; Start 05/15/18 at 19:30 Multivitamins Therapeutic (Theragran) 1 tab DAILY PO Last administered on 05/18/18 08:52; Admin Dose 1 TAB; Start 05/16/18 at 09:00 Ondansetron HCl (Zofran Inj) 4 mg Q6H PRN IV NAUSEA AND/OR VOMITING; Start 05/15/18 at 19:30 Acetaminophen/ Hydrocodone Bitart (Lortab Liq) 5 ml Q4H PRN PO MODERATE PAIN LEVEL 4-6; Start 05/15/18 at 20:00 Zolpidem Tartrate (Ambien) 5 mg HS PRN PO INSOMNIA; Start 05/15/18 at 20:00 Miscellaneous Information 1 ea NOTE XX ; Start 05/15/18 at 20:00 Glucose (Glutose) 15 gm Q15M PRN PO DECREASED GLUCOSE; Start 05/15/18 at 20:00 Glucose (Glutose) 22.5 gm Q15M PRN PO DECREASED GLUCOSE; Start 05/15/18 at 20:00 Dextrose (D50w Syringe) 25 ml Q15M PRN IV DECREASED GLUCOSE; Start 05/15/18 at 20:00 Dextrose (D50w Syringe) 50 ml Q15M PRN IV DECREASED GLUCOSE; Start 05/15/18 at 20:00 Glucagon (Glucagen) 1 mg Q15M PRN IM DECREASED GLUCOSE; Start 05/15/18 at 20:00 Glucose (Glutose) 15 gm Q15M PRN BUCCAL DECREASED GLUCOSE; Start 05/15/18 at 20:00 Enoxaparin Sodium (Lovenox) 40 mg DAILY SC Last administered on 05/18/18at 08:53; Admin Dose 40 MG; Start 05/16/18 at 09:00 Losartan Potassium (Cozaar) 100 mg DAILY PO Last administered on 05/18/18at 08:51; Admin Dose 100 MG; Start 05/16/18 at 09:00 Hydrochlorothiazide (Hydrochlorothiazide) 25 mg DAILY PO Last administered on 05/18/18at 08:52; Admin Dose 25 MG; Start 05/16/18 at 09:00 Amlodipine Besylate (Norvasc) 5 mg DAILY PO Last administered on 05/18/18at 08:52; Admin Dose 5 MG; Start 05/16/18 at 10:00 Famotidine (Pepcid) 20 mg DAILY PO Last administered on 05/18/18at 08:54; Admin Dose 20 MG; Start 05/18/18 at 09:00 Docusate Sodium (Colace) 100 mg BID PRN PO CONSTIPATION; Start 05/18/18 at 07:00 Tramadol HCl (Ultram) 50 mg Q6 PRN PO PAIN LEVEL 6-10; Start 05/18/18 at 07:30 Methocarbamol (Robaxin) 500 mg Q8 PRN PO MUSCLE SPASMS; Start 05/18/18 at 14:00 Amoxicillin (Amoxicillin) 500 mg Q8 PO ; Start 05/18/18 at 14:00 LINWOOD COPE MD May 18, 2018 12:43
[2018-05-18 14:00] VITALS: BP 144/79; PULSE 82; RESP 18
[2018-05-18] MEDS ORDERED: METHOCARBAMOL 500 MG TAB PO PRN (14:00)
[2018-05-18] MEDS: AMOXICILLIN 500 MG CAP PO SCH ×2 (14:49→21:03)
[2018-05-18 20:00] VITALS: BP 136/58; PULSE 76; RESP 18
[2018-05-18] MEDS: LEVOTHYROXINE 88 MCG TAB PO SCH (20:07)
[2018-05-18] MEDS: SENNA TAB PO SCH (20:22)
[2018-05-19] MEDS: ALBUTEROL/IPRATROPIUM (NEB) 3 ML AMP HHN SCH ×2 (01:54→07:30)
[2018-05-19] MEDS: ACCU-CHEK XX SCH (02:00)
[2018-05-19] MEDS: AMOXICILLIN 500 MG CAP PO SCH (05:03)
[2018-05-19 07:30] VITALS: BP 151/67; PULSE 68; RESP 18
[2018-05-19] MEDS: INSULIN ASPART [NOVOLOG] 3 ML PEN SC SCH (07:54)
[2018-05-19] MEDS: LOSARTAN 50 MG TAB PO SCH (08:52)
[2018-05-19] MEDS: FAMOTIDINE 20 MG TAB PO SCH (08:53)
[2018-05-19] MEDS: AMLODIPINE 5 MG TAB PO SCH (08:53)
[2018-05-19] MEDS: CYANOCOBALAMIN 500 MCG TAB PO SCH (08:53)
[2018-05-19] MEDS: HYDROCHLOROTHIAZIDE 25 MG TAB PO SCH (08:53)
[2018-05-19] MEDS: FOLIC ACID 0.4 MG TAB PO SCH (08:53)
[2018-05-19] MEDS: FUROSEMIDE 20 MG TAB PO SCH (08:54)
[2018-05-19] MEDS: ASPIRIN (EC) 81 MG TAB PO SCH (08:54)
[2018-05-19] MEDS: MULTIVITAMINS THERAPEUTIC TAB PO SCH (08:54)
[2018-05-19] MEDS: CHOLECALCIFEROL 1,000 UNIT TAB PO SCH (08:54)
[2018-05-19] MEDS: ENOXAPARIN 40 MG/0.4 ML SYG SC SCH (09:00)
--- NOTE | 2018-05-19 10:58 | PN ---
Date/Time of Note Date/Time of Note DATE: 05/19/18 TIME: 10:57 Assessment/Plan VTE Prophylaxis Risk score (from Ns)>0 risk: 3 SCD applied (from Nsg): Yes Pharmacological prophylaxis: NA/contraindicated Pharm contraindication: low risk/ambulating Lines/Catheters IV Catheter Type (from Nrsg): Saline Lock Assessment/Plan Hospital Course 1. Acute onset of upper back, status post picking up her dog. CT C spine and T spine There is multilevel degenerative changes resulting in moderate central canal stenosis at the C4-5 , C5-6 and C6-7 levels. Mild bilateral C6-7 neural foraminal narrowing is seen . thoracic spine demonstrates multilevel degenerative changes resulting in multilevel neural foraminal narrowing, severe at the left T4-5 level with moderate to severe neural foraminal narrowing at the right T3-4 level.MRI shows: Multilevel disc desiccation at the C2-3 through T2-3 levels with severe disc space height loss and degenerative endplate changes at C6-7. 2. Dehydration with elevated BUN to creatinine ratio. 3. Diabetes. 4. Bronchitis.hx 5. Hypertension. 6. Sciatica. 7. Osteoarthritis. 8. History of fibromyalgia. 9. History of spondylolisthesis. 10. Hypothyroidism. 11. Hypercholesterolemia. 12. Depression. 13. Obstructive sleep apnea. 14. UTI with Enterococcus Plan -cw amoxacillin which is sensitive to enterococcus for a 7-day course -PT OT -cw with losartan/hydrochlorothiazide - pain control -cw with home medicines DC planning today d/u Dr Reece in 2 weeks Result Diagram: 05/17/18 0654 05/17/18 0654 Results 24hrs Laboratory Tests Test 05/18/18 12:05 05/18/18 17:42 05/18/18 20:09 05/19/18 05:03 Bedside Glucose 158 156 216 122 Test 05/19/18 07:53 Bedside Glucose 143 Subjective 24 Hr Interval Summary Free Text/Dictation no complains pt discharged today Exam/Review of Systems Exam Vitals Vital Signs Date Temp Pulse Resp B/P (MAP) Pulse Ox O2 O2 Flow FiO2 Time Delivery Rate 05/19/18 62 18 96 21 07:32 05/19/18 97.6 151/67 Room Air 07:30 (95) Intake and Output 05/18/18 05/18/18 05/19/18 1414:59 22:59 06:59 IntakeIntake Total 50 ml 1200 ml 300 ml OutputOutput Total 600 ml BalanceBalance 50 ml 600 ml 300 ml Exam Neck: supple Respiratory: clear to auscultation Cardiovascular: regular rate and rhythm Gastrointestinal: soft, bowel sounds (+) Extremities: No edema Results Results 24hrs Laboratory Tests Test 05/18/18 12:05 05/18/18 17:42 05/18/18 20:09 05/19/18 05:03 Bedside Glucose 158 156 216 122 Test 05/19/18 07:53 Bedside Glucose 143 Medications Medication Current Medications Miscellaneous Information ([facility]) This patient luna... PRN PRN XX WOUND CARE; Start 05/15/18 at 16:00 Senna (Senokot) 1 tab QHS PO ; Start 05/15/18 at 21:00 Bisacodyl (Dulcolax Supp) 10 mg DAILY PRN [place] CONSTIPATION; Start 05/15/18 at 16:30 Magnesium Hydroxide (Milk Of Mag) 30 ml BID PRN PO CONSTIPATION; Start 05/15/18 at 16:30 Lactulose (Enulose) 20 gm DAILY PRN PO CONSTIPATION; Start 05/15/18 at 16:30 Aspirin (Halfprin) 81 mg DAILY PO Last administered on 05/19/18at 08:54; Admin Dose 81 MG; Start 05/16/18 at 09:00 Cholecalciferol (Vitamin D) 1,000 unit DAILY PO Last administered on 05/19/18at 08:54; Admin Dose 1,000 UNIT; Start 05/16/18 at 09:00 Diagnostic Test (Pha) (Accu-Chek) 1 ea 02 XX ; Start 05/16/18 at 02:00 Acetaminophen (Tylenol Tab) 650 mg Q6H PRN PO MILD PAIN(1-3)OR ELEVATED TEMP; Start 05/15/18 at 19:30 Albuterol/ Ipratropium (Duoneb) 3 ml Q6H RESP THERAPY HHN Last administered on 05/19/18at 07:30; Admin Dose 3 ML; Start 05/15/18 at 20:00 Cyanocobalamin (Vitamin B12) 1,000 mcg DAILY PO Last administered on 05/19/18at 08:53; Admin Dose 1,000 MCG; Start 05/16/18 at 09:00 Folic Acid (Folic Acid) 0.8 mg DAILY PO Last administered on 05/19/18 08:53; Admin Dose 0.8 MG; Start 05/16/18 at 09:00 Furosemide (Lasix) 20 mg DAILY PO Last administered on 05/19/18 08:54; Admin Dose 20 MG; Start 05/16/18 at 09:00 Insulin Aspart (Novolog Insulin Pen) NOVOLOG *MILD* ALGORITHM WITH MEALS BEDTIME SC Last administered on 05/19/18 07:54; Admin Dose 1 UNIT; Start 05/15/18 at 21:00 Levothyroxine Sodium (Synthroid) 88 mcg QHS PO Last administered on 05/18/18 20:07; Admin Dose 88 MCG; Start 05/16/18 at 21:00 Morphine Sulfate (morphine) 1 mg Q3H PRN IV SEVERE PAIN LEVEL 7-10; Start 05/15/18 at 19:30 Multivitamins Therapeutic (Theragran) 1 tab DAILY PO Last administered on 05/19/18 08:54; Admin Dose 1 TAB; Start 05/16/18 at 09:00 Ondansetron HCl (Zofran Inj) 4 mg Q6H PRN IV NAUSEA AND/OR VOMITING; Start 05/15/18 at 19:30 Acetaminophen/ Hydrocodone Bitart (Lortab Liq) 5 ml Q4H PRN PO MODERATE PAIN LEVEL 4-6; Start 05/15/18 at 20:00 Zolpidem Tartrate (Ambien) 5 mg HS PRN PO INSOMNIA; Start 05/15/18 at 20:00 Miscellaneous Information 1 ea NOTE XX ; Start 05/15/18 at 20:00 Glucose (Glutose) 15 gm Q15M PRN PO DECREASED GLUCOSE; Start 05/15/18 at 20:00 Glucose (Glutose) 22.5 gm Q15M PRN PO DECREASED GLUCOSE; Start 05/15/18 at 20:00 Dextrose (D50w Syringe) 25 ml Q15M PRN IV DECREASED GLUCOSE; Start 05/15/18 at 20:00 Dextrose (D50w Syringe) 50 ml Q15M PRN IV DECREASED GLUCOSE; Start 05/15/18 at 20:00 Glucagon (Glucagen) 1 mg Q15M PRN IM DECREASED GLUCOSE; Start 05/15/18 at 20:00 Glucose (Glutose) 15 gm Q15M PRN BUCCAL DECREASED GLUCOSE; Start 05/15/18 at 20:00 Enoxaparin Sodium (Lovenox) 40 mg DAILY SC Last administered on 05/18/18at 08:53; Admin Dose 40 MG; Start 05/16/18 at 09:00 Losartan Potassium (Cozaar) 100 mg DAILY PO Last administered on 05/19/18 08:52; Admin Dose 100 MG; Start 05/16/18 at 09:00 Hydrochlorothiazide (Hydrochlorothiazide) 25 mg DAILY PO Last administered on 05/19/18at 08:53; Admin Dose 25 MG; Start 05/16/18 at 09:00 Amlodipine Besylate (Norvasc) 5 mg DAILY PO Last administered on 05/19/18 08:53; Admin Dose 5 MG; Start 05/16/18 at 10:00 Famotidine (Pepcid) 20 mg DAILY PO Last administered on 05/19/18 08:53; Admin Dose 20 MG; Start 05/18/18 at 09:00 Docusate Sodium (Colace) 100 mg BID PRN PO CONSTIPATION; Start 05/18/18 at 07:00 Tramadol HCl (Ultram) 50 mg Q6 PRN PO PAIN LEVEL 6-10; Start 05/18/18 at 07:30 Methocarbamol (Robaxin) 500 mg Q8 PRN PO MUSCLE SPASMS; Start 05/18/18 at 14:00 Amoxicillin (Amoxicillin) 500 mg Q8 PO Last administered on 05/19/18at 05:03; Admin Dose 500 MG; Start 05/18/18 at 14:00 NINFA MUELLER MD May 19, 2018 10:58
--- NOTE | 2018-05-19 14:29 | DS ---
Date/Time of Note Date/Time of Note DATE: 05/19/18 TIME: 14:27 Discharge Summary Admission/Discharge Info Admit Date/Time May 15, 2018 at 15:31 Discharge Date/Time May 19, 2018 at 11:23 Discharge Diagnosis 1. 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 2. Hypertension. 3. Obesity. 4. Bronchitis. 5. Fibromyalgia. 6. Hypothyroidism. 7. Hyperlipidemia. 8. Sleep apnea. 9. Depression. 10.Diabetes mellitus type 2. 11. Improvements in self-care and mobility. Patient Condition: Good Hospital Course The patient was admitted for comprehensive interdisciplinary rehabilitation and made steady functional gains from a Min level to a [place] level for self care tasks and mobility including ambulating over 150 feet with the use of a FWW. Patient is being discharged home with the recommendation of home health PT, OT and RN follow up. The DC meds are per the medication reconciliation sheet. The discha rge equipment recommendations include: FWW, BSC, shower chair. The patient will follow up with PMD upon DC. Home Meds Active Scripts Methocarbamol* (Robaxin*) 500 Mg Tab, 500 MG PO Q8, #14 TAB Prov:DINORAH BAPTISTE DO 05/12/18 Tramadol HCl (Tramadol HCl) 50 Mg Tablet, 50 MG PO Q6, #20 TAB Prov:DINORAH BAPTISTE DO 05/12/18 Reported Medications Magnesium Oxide (Magnesium) 250 Mg Tablet, 250 MG PO DAILY, TAB 05/12/18 Cyanocobalamin* (Vitamin B-12*) 1,000 Mcg Tablet.sa, 1000 MCG PO DAILY, TAB 05/12/18 Furosemide* (Furosemide*) 20 Mg Tablet, 20 MG PO DAILY, #60 TAB 05/12/18 Levothyroxine Sodium* (Levothyroxine Sodium*) 88 Mcg Tablet, 88 MCG PO BEFORE BREAKFAST, #30 TAB 05/12/18 Aspirin* (Aspirin* EC) 81 Mg Tablet.dr, 81 MG PO DAILY, TAB 05/12/18 Cholecalciferol* (Vitamin D3*) 1,000 Unit Tablet, 1000 UNIT PO DAILY, TAB 05/12/18 Losartan-Hydrochlorothiazide (Losartan-HCTZ) 100-25 Mg Tab, 1 TAB PO DAILY, TAB 05/12/18 Multivitamins* (Theragran*) 1 Tab Tab, 1 TAB PO DAILY, TAB 05/12/18 Folic Acid* (Folic Acid*) 0.8 Mg Tablet, 0.8 MG PO DAILY, TAB 05/12/18 Discontinued Reported Medications Cephalexin* (Cephalexin*) 500 Mg Capsule, 500 MG PO BID for 7 Days, #14 CAP 06/20/17 [Magnesium 250MG] No Conflict Check, 1 TAB PO DAILY 06/20/17 Folic Acid (Fa-8) 0.8 Mg Tablet, 0.8 MG PO DAILY, TAB 06/20/17 Cholecalciferol (Vitamin D3) 5,000 Unit Tablet, 5000 UNIT PO DAILY, TAB 06/20/17 [place]-3 Fatty Acids/Fish Oil (Fish Oil 1,200 mg Softgel) 1 Each Capsule, 1 EACH PO BID, CAP 06/20/17 Cyanocobalamin (Vitamin B-12) (Vitamin B-12) 1,000 Mcg Capsule, 1000 MCG PO QAM, CAP 06/20/17 Losartan-Hydrochlorothiazide (Losartan-HCTZ) 100-25 Mg Tab, 1 TAB PO DAILY, TAB 06/20/17 Levothyroxine Sodium* (Levothyroxine Sodium*) 88 Mcg Tablet, 88 MCG PO BEFORE BREAKFAST, #30 TAB 06/20/17 Metformin Hcl* (Metformin Hcl*) 500 Mg Tablet, 500 MG PO WITH BREAKFAST, #30 TAB 06/20/17 Furosemide* (Furosemide*) 20 Mg Tablet, 20 MG PO DAILY, #60 TAB 06/20/17 Aspirin* (Aspirin* EC) 81 Mg Tablet.dr, 81 MG PO DAILY, TAB 06/20/17 Discontinued Scripts Naproxen* (Naproxen*) 500 Mg Tablet, 500 MG PO BID PRN for PAIN, #20 TAB Prov:TAO KIRKLAND DO 06/20/17 Sulfamethoxazole/Trimethoprim* (Bactrim Ds* Tablet) 1 Each Tablet, 1 TAB PO BID, #20 TAB Prov:TAO KIRKLAND DO 06/20/17 Primary Care Provider Vu Reece MD Pending Labs Laboratory Tests Test 05/18/18 17:42 05/18/18 20:09 05/19/18 05:03 05/19/18 07:53 Bedside 156 216 122 143 Glucose mg/dL (70-220) mg/dL (70-220) mg/dL (70-220) mg/dL (70-220) LINWOOD COPE MD May 19, 2018 14:29
== END 2018-05-19 11:23 | disposition home health service (06) | DRG 57 ==
LOC: VRC 15:31
PROVIDERS: ADMIT Physical Medicine & Rehabilitation; ATTEND Internal Medicine
PROC: F07Z9FZ Gait Training/Functional Ambulation Treatment using Assistive, Adaptive, Supportive or Protective Equipment (ICD-10-PCS; principal; 2018-05-15)
PROC: F07Z8FZ Transfer Training Treatment using Assistive, Adaptive, Supportive or Protective Equipment (ICD-10-PCS; 2018-05-15)
PROC: F07Z5FZ Bed Mobility Treatment using Assistive, Adaptive, Supportive or Protective Equipment (ICD-10-PCS; 2018-05-15)
PROC: F08Z2FZ Grooming/Personal Hygiene Treatment using Assistive, Adaptive, Supportive or Protective Equipment (ICD-10-PCS; 2018-05-15)
PROC: F08Z0FZ Bathing/Showering Techniques Treatment using Assistive, Adaptive, Supportive or Protective Equipment (ICD-10-PCS; 2018-05-15)
PROC: F08Z1FZ Dressing Techniques Treatment using Assistive, Adaptive, Supportive or Protective Equipment (ICD-10-PCS; 2018-05-15)
DX: G95.0 Syringomyelia and syringobulbia (principal); N39.0 Urinary tract infection, site not specified; M48.03 Spinal stenosis, cervicothoracic region; E11.9 Type 2 diabetes mellitus without complications; I10 Essential (primary) hypertension; E66.9 Obesity, unspecified; M79.7 Fibromyalgia; Z68.39 Body mass index [BMI] 39.0-39.9, adult; E03.9 Hypothyroidism, unspecified; E78.5 Hyperlipidemia, unspecified; E86.0 Dehydration; G47.33 Obstructive sleep apnea (adult) (pediatric); M43.10 Spondylolisthesis, site unspecified; E78.00 Pure hypercholesterolemia, unspecified; B95.2 Enterococcus as the cause of diseases classified elsewhere; Z79.82 Long term (current) use of aspirin
CPT/HCPCS: 80048; 80053; 81001; 82962; 84443; 85025; 87081; 87086; 94640; 94664; 97110; 97116; 97163; 97167; 97530; 97535; J0696; J1650; J1815; J1885; L1820